=== PATIENT | male | born 1940 | race Caucasian/White ===

== ENCOUNTER 2019-03-05 08:55 | Inpatient (IN) ==
[2019-03-05] MEDS ORDERED: Isovue-370 500 ML BOTTLE IVP ONE (09:15)
[2019-03-05] MEDS ORDERED: 0.9 % Sodium Chloride 500 ML IVC ONE ×3 (09:15→13:16)
[2019-03-05 09:23] LABS: Hematocrit 41.6 % (37.5-50.1); Hemoglobin 13.8 g/dL (12.9-16.9); Mean Corpuscular HGB Conc 33.2 g/dL (31.6-35.5); Mean Corpuscular Hemoglobin 31.9 pg (28.0-33.3); Mean Corpuscular Volume 96.3 fL (83.0-100.0); Mean Platelet Volume 11.8 fL (9.4-12.4); Platelet Count 226 K/mcL (140-400); Red Blood Count 4.32 M/mcL (4.19-5.50); Red Cell Distribution Width 13.2 % (11.5-14.5)
[2019-03-05 09:25] LABS: VBG HCO3 24 mEq/L (21-27); VBG PCO2 47 mmHg (41-51); VBG PH 7.32 pH Units (7.32-7.42); VBG PO2 57 mmHg (25-50)
--- NOTE | 2019-03-05 09:33 | Emergency Department Note ---
Disposition Clinical Impression: Hypoxia, Acute respiratory distress, Lower extremity pain, left Pneumonia Qualifiers: Pneumonia type: due to unspecified organism Laterality: bilateral Lung location: lower lobe of lung Qualified Code(s): J18.1 - Lobar pneumonia, unspecified organism Acute renal failure (ARF) Qualifiers: Acute renal failure type: unspecified Qualified Code(s): N17.9 - Acute kidney failure, unspecified Disposition: Admitted As Inpatient Condition: Fair Referrals: Lincoln Hinojosa Jr, MD [Primary Care Provider] - Forms: ED Satisfaction Letter Time of Disposition: 12:49 General Adult HPI - General Chief complaint: ED Nausea/Vomiting/Diarrhea Stated complaint: Vomiting Time Seen by Provider: 03/05/19 09:12 Source: patient Nursing Notes Reviewed: Yes Vital Signs Reviewed: Yes - History of Present Illness HPI Narrative: I did see the patient initially at 9:00 and history was from both the patient and his could not tell me that he has had vomiting for the last several weeks, intermittent, some loose stools but no overt diarrhea, no complaint of fever. He does have a dry cough. The patient is on home oxygen 2-1/2 L but neither he nor his know why he is on the oxygen. I did review the previous record. The patient denies any chest pain or tightness or discomfort or pressure. He does use metoprolol but has not yet taken this medicine today. He denies any rhinorrhea. He does have shortness of breath. He does have left leg pain which is minimal and cannot tell me the specific character. This is also been going on for the last several weeks and has not yet had that evaluated. Per his previous record he had been on warfarin in the past and now is on Plavix. Social history: Stopped smoking 15 years ago Pain Scale: 0 - Related Data Home Medications Medication Instructions Recorded Confirmed Amlodipine Besylate 10 mg PO DAILY 03/20/16 03/20/16 Ascorbic Acid [Vitamin C] 1,000 mg PO DAILY PRN 03/20/16 03/20/16 Benazepril HCl [Lotensin] 40 mg PO DAILY 03/20/16 03/05/19 Clopidogrel [Plavix] 75 mg PO DAILY 03/20/16 03/05/19 Dm/Acetaminophen/Doxylamine [Vicks 10 ml PO HS PRN 03/20/16 03/20/16 Nyquil Cold-Flu Liquid] Hydralazine HCl 100 mg PO BID 03/20/16 03/20/16 Insulin Aspart Prot/Insuln Asp 20 - 40 unit SQ DAILY PRN 03/20/16 03/20/16 [Novolog Mix 70-30 Vial] Metoprolol Tartrate [Lopressor] 50 mg PO BID 03/20/16 03/05/19 Pravastatin Sodium 40 mg PO DAILY 03/20/16 03/05/19 glipiZIDE [Glipizide] 10 mg PO BID 03/20/16 03/05/19 hydroCHLOROthiazide 25 mg PO DAILY 03/20/16 03/05/19 [Hydrochlorothiazide] metFORMIN [Glucophage] 1,000 mg PO BIDWM 03/20/16 03/05/19 LORazepam [Ativan] 0.5 mg PO Q4HR PRN 03/05/19 03/05/19 Tamsulosin HCl [Flomax] 0.4 mg PO DAILY 03/05/19 03/05/19 Previous Rx's Medication Instructions Recorded Fluticasone/Salmeterol [Advair 1 each IH BID #1 blst.w.dev 03/30/16 250-50 Diskus] Tiotropium [Spiriva] 18 mcg IH DAILY #1 inh 03/30/16 levoFLOXacin [Levaquin] 500 mg PO DAILY #5 tablet 03/30/16 predniSONE [PredniSONE] 10 mg PO DAILY #30 tablet 03/30/16 Azithromycin [Zithromax] 0 tab PO DAILY #6 tablet 09/08/17 Promethazine/Codeine 5 ml PO QPM #60 ml 09/08/17 [Phenergan/Codeine] Allergies Allergy/AdvReac Type Severity Reaction Status Date / Time No Known Allergies Allergy Verified 09/08/17 12:09 Review of Systems: Constitutional: No fever Vision: No blurred vision ENT: No rhinorrhea Respiratory: + cough Allergic: No allergies : No blood in urine GI: No blood in stool Hematologic: No bruising Dermatologic: No skin rash Musculoskeletal: + pain in the extremities Neuro: No numbness of the extremities Past Medical History - Past Medical History Medical history: Reports: non-contributory Psychiatric history: Reports: no psych history - Social History Smoking Status: Never smoker Smokeless Tobacco Status: No Alcohol use: Reports: none Drug use: Reports: none Physical Exam CONSTITUTIONAL: Alert and oriented X3, well-nourished, ill appearing HEAD: Normocephalic; atraumatic. EYES: PERRL, no scleral icterus. NOSE: The nose is normal in appearance without rhinorrhea RESP: Normal chest excursion with respiration; breath sounds distant bilat and symmetric, no wheezing CARD: Regular rhythm, without murmurs, rub or gallop ABD: Non-distended; non-tender, soft,without rigidity, rebound or guarding SKIN: Normal for age and race; warm and dry; no apparent lesions Extremities: Pulses 2+ and equal in all 4 extremities. Minimal pretibial peripheral edema left lower extremity but no erythema. Minimally more swollen than the right and - General General appearance: alert Course Vital Signs Temperature 98.0 F 03/05/19 09:00 Pulse Rate 34 03/05/19 09:00 Respiratory Rate 20 03/05/19 09:00 Blood Pressure 107/55 03/05/19 09:00 O2 Sat by Pulse Oximetry 87 03/05/19 09:00 Temperature 98.0 F 03/05/19 09:00 Pulse Rate 32 03/05/19 13:14 Respiratory Rate 18 03/05/19 13:14 Blood Pressure 108/48 03/05/19 13:14 O2 Sat by Pulse Oximetry 93 03/05/19 13:14 Oxygen Delivery Oxygen Delivery Non Rebreather Mask Medical Decision Making - [facility] Narrative Medical decision making narrative: Patient initially had an oxygen saturation in the low 70s and her heart rate between 32 and 36 bpm. On the monitor he is in a very clear sinus bradycardia rhythm however on his EKG it does appear to be junctional rhythm with a rate of 33. There are some nonspecific ST changes. Evidence of right bundle-branch block. The patient is not dizzy at this time but was dizzy on the way here. His systolic blood pressure is 107. This is likely from the metoprolol but with the vomiting and loose stools he could be hypokalemic and labs are pending. Hyperkalemia is another possibility so no calcium or other medication will be given at this time as I will wait and see the lab results as the patient is essentially asymptomatic regarding blood pressure and dizziness. Patient will be admitted to the hospital. He is not febrile. I did go back and check on the patient at 920 and his condition is unchanged. 0935 I did just recheck on the patient and his blood pressure has been rechecked and is 105 systolic. Current heart rate is 29 bpm and a sinus bradycardia. His CBC has returned but the electrolytes have not yet returned. 1009 I did speak with the lab who tells me that the blood is very mildly hemolyzed which will alter the direct bilirubin and AST level but this amount of hemolysis does not affect potassium level and the potassium is 5.6 to this point this seems that the bradycardia is most consistent and most likely being caused by the use of metoprolol. He has not yet taken any today so I did speak with Dr. Ulises Arciniega from cardiology who agrees with observation and no further interventions at this time as the patient is not symptomatic and his blood pressure is reasonably preserved and the patient will be admitted to medicine after results of the DVT study and CTA of the chest have been returned. I will turn in the consult now. 1021 X-ray does have the appearance of pneumonia which is not surprising as his oxygen saturation on arrival was 71% he does have a cough I did confirm with the that he has not recently been in the healthcare facility or admitted so he will be started on Rocephin and I did use a 2 g dose as well as Zithromax 500 mg IV. He will have a VQ scan and the Doppler left lower extremity is pending. I rechecked on the patient again. Blood pressure still maintained. 1102 I did speak with Dr. Kenyon regarding the patient's acute renal failure and we did discuss the intravenous fluids and the patient has received 2 adminis trations of 500 mL fluid boluses. He will consult. 1113 the ventilation perfusion scan is low prob. 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 1248 I did speak with the hospitalist who accepts the patient for admission. Asks for a third bolus of IV fluid 500 mL and I did write for that. Patient will be admitted to their service for further evaluation and management of bradycardia, acute renal failure, pneumonia 1317 - Medical Records Medical records reviewed: Yes I reviewed the patient's medical records. - Lab Data Lab results reviewed: Yes I reviewed the patient's lab results. Result diagrams: 03/05/19 09:10 03/05/19 09:10 Lab Results 03/05/19 03/05/19 03/05/19 Range/Units 09:10 09:10 09:10 WBC 12.0 H (4.3-11.1) K/mcL RBC 4.32 (4.19-5.50) M/mcL Hgb 13.8 (12.9-16.9) g/dL Hct 41.6 (37.5-50.1) % MCV 96.3 (83.0-100.0) fL MCH 31.9 (28.0-33.3) pg MCHC 33.2 (31.6-35.5) g/dL RDW 13.2 (11.5-14.5) % Plt Count 226 (140-400) K/mcL MPV 11.8 (9.4-12.4) fL D-Dimer 1526 H (0-500) ng/mLFEU VBG pH (7.32-7.42) pH Units VBG pCO2 (41-51) mmHg VBG pO2 (25-50) mmHg VBG HCO3 (21-27) mEq/L Sodium 130 L (136-145) mEq/L Potassium 5.6 H (3.5-5.1) mEq/L Chloride 94 L (98-107) mEq/L Carbon Dioxide 23 (23-29) mEq/L BUN 41 H (8-23) mg/dL Creatinine 4.02 H (0.70-1.30) mg/dL Est GFR ( Amer) 18 L (> 60) Est GFR (Non-Af Amer) 15 L (> 60) BUN/Creatinine Ratio 10 (6-26) Glucose 236 H (70-105) mg/dL Calculated Osmolality 288 (280-300) Calcium 9.5 (8.6-10.3) mg/dL Total Bilirubin 0.5 (0.3-1.0) mg/dL Direct Bilirubin TNP AST TNP ALT 13 (7-52) Units/L Alkaline Phosphatase 36 (34-104) Units/L Troponin I < 0.03 (< 0.04) ng/mL Serum Total Protein 6.9 (6.4-8.9) g/dL Albumin 4.4 (3.5-5.7) g/dL Globulin 2.5 (2.4-3.5) g/dL Albumin/Globulin Ratio 1.8 (1.1-2.2) Lipase 21 (11-82) Units/L TSH 2.780 (0.340-5.600) mcIU/mL Free T4 1.34 (0.70-2.00) ng/dl 03/05/19 Range/Units 09:22 WBC (4.3-11.1) K/mcL RBC (4.19-5.50) M/mcL Hgb (12.9-16.9) g/dL Hct (37.5-50.1) % MCV (83.0-100.0) fL MCH (28.0-33.3) pg MCHC (31.6-35.5) g/dL RDW (11.5-14.5) % Plt Count (140-400) K/mcL MPV (9.4-12.4) fL D-Dimer (0-500) ng/mLFEU VBG pH 7.32 (7.32-7.42) pH Units VBG pCO2 47 (41-51) mmHg VBG pO2 57 H (25-50) mmHg VBG HCO3 24 (21-27) mEq/L Sodium (136-145) mEq/L Potassium (3.5-5.1) mEq/L Chloride (98-107) mEq/L Carbon Dioxide (23-29) mEq/L BUN (8-23) mg/dL Creatinine (0.70-1.30) mg/dL Est GFR ( Amer) (> 60) Est GFR (Non-Af Amer) (> 60) BUN/Creatinine Ratio (6-26) Glucose (70-105) mg/dL Calculated Osmolality (280-300) Calcium (8.6-10.3) mg/dL Total Bilirubin (0.3-1.0) mg/dL Direct Bilirubin AST ALT (7-52) Units/L Alkaline Phosphatase (34-104) Units/L Troponin I (< 0.04) ng/mL Serum Total Protein (6.4-8.9) g/dL Albumin (3.5-5.7) g/dL Globulin (2.4-3.5) g/dL Albumin/Globulin Ratio (1.1-2.2) Lipase (11-82) Units/L TSH (0.340-5.600) mcIU/mL Free T4 (0.70-2.00) ng/dl - Radiology Data Radiology results reviewed: Yes I reviewed the patient's radiology results. Critical Care Time Critical Care Time: Yes Total Critical Care Time: 60 Attestation: 60 minutes of critical care time was spent with this patient with acute respiratory distress, hypoxemia, acute renal failure, leg pain and swelling with consideration for pulmonary embolism, administration of IV antibiotics, IV fluids and discussion with multiple consultants including cardiology and nephrology. and freq rechecks of the patient
[2019-03-05 10:16] LABS: Alanine Aminotransferase 13 Units/L (7-52); Albumin 4.4 g/dL (3.5-5.7); Albumin/Globulin Ratio 1.8 (1.1-2.2); Alkaline Phosphatase 36 Units/L (34-104); BUN/Creatinine Ratio 10 (6-26); Bilirubin,Total 0.5 mg/dL (0.3-1.0); Blood Urea Nitrogen 41 mg/dL (8-23); Calcium 9.5 mg/dL (8.6-10.3); Carbon Dioxide 23 mEq/L (23-29); Chloride 94 mEq/L (98-107); Globulin 2.5 g/dL (2.4-3.5); Glucose 236 mg/dL (70-105); Lipase 21 Units/L (11-82); Osmolality,Calculated 288 (280-300); Potassium 5.6 mEq/L (3.5-5.1); Sodium 130 mEq/L (136-145); Total Protein 6.9 g/dL (6.4-8.9); Troponin I < 0.03 ng/mL (< 0.04); eGFR For Non-African Americans 15 (> 60)
[2019-03-05] MEDS ORDERED: Azithromycin 500 MG in D5% in Water 250 ML IVPB ONE (11:00)
[2019-03-05] MEDS ORDERED: cefTRIAXone 2,000 MG in Water for inj. (sterile) 20 ML 20 ML IVP ONE (11:00)
--- NOTE | 2019-03-05 12:39 | Electrocardiograph Report ---
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
--- NOTE | 2019-03-05 15:19 | Event Note ---
Date of Encounter: 03/05/19 Time of Encounter: 15:15 - Cardiology Event Note Continue holding AVB medications as cause of bradycardia. Pacer pads can be turned on at rate of 60 if patient becomes symptomatic or progressively hypotensive. Additionally can use atropine prn and either dopamine drip at 10mcg+ or epinephrine drip if she becomes symptomatic.
[2019-03-05] MEDS ORDERED: Ondansetron ODT 4 MG TAB.RAPDIS SL PRN (15:20)
[2019-03-05] MEDS ORDERED: Naloxone 0.4 MG/ML INJ IVP PRN (15:20)
[2019-03-05] MEDS ORDERED: Acetaminophen 325 MG TABLET PO PRN (15:20)
[2019-03-05] MEDS ORDERED: methylPREDNISolone 125 MG/2 ML VIAL IVP ONE (15:29)
[2019-03-05] MEDS ORDERED: Dextrose Gel 15 GM/37.5 ML TUBE PO PRN ×2 (15:30)
[2019-03-05] MEDS ORDERED: D5% in Water 1,000 ML IVC PRN (15:30)
[2019-03-05] MEDS ORDERED: *HR* Dextrose 50 % in Water (Syg) 50 ML SYRINGE IVP PRN (15:30)
--- NOTE | 2019-03-05 16:17 | Internal Med History&Physical ---
<Han Walls R - Last Filed: 03/05/19 17:22> Date of Encounter: 03/05/19 Time of Encounter: 14:24 Internal Medicine - H&P: HPI Chief complaint: N/V Admitted From: Emergency Dept History of present illness: Mr. Church is a 79 year old male with PMH of CAD s/p 5 stents, CVA's, HTN, HLD, DM2, COPD (on home O2 PRN), and BPH, presented with complaints of N/V and dizziness. He reports that 1-2 weeks ago he began having intermittent dizziness. After this dizziness he then he developed nausea, vomiting, and decreased appetite. His symptoms seemed to improve, but then returned. He reports continued episodes of intermittent dizziness. Also reports symptoms of dry cough, worsening dyspnea, extertional dyspnea, and orthopnea. He denies fevers, chills, chest pain, abdominal pain, diarrhea, melena, hematochezia, dysuria, or edema. He arrived at the ED hypoxic in the 70's with HR 32-36, and hypotensive. He was placed of supplemental O2 and given a total of 1500ml of NS. CXR is concerning for possible PNA, so he was started given rocephin and azithromycin. CXR was however a poor film. EKG showed junctional rhythm with non-specific ST changes and RBBB. Cardiology was consulted from the ED and recommended holding BB. He was found to have an MARIANO with SCr 4.02, and nephrology was consulted from the ED, who recommended continued fluid resuscitation. Upon my assessment the patient was non-labored on O2 supplementation and BP stable in 100's/50's. Past Med Surg Social Fam HX - Past Medical History Medical history: non-contributory Psychiatric history: no psych history - Past Surgical History Additional surgical history: cardiac stents - Social History Smoking Status: Never smoker Smokeless Tobacco Status: No Alcohol use: none Drug use: none - Family History Mother Living Status: Hx Family Cardiac Disorders: Yes Hx Family Endocrine Disorder: Yes Father Living Status: Hx Family Cardiac Disorders: Yes Internal Medicine - H&P: Meds Benazepril HCl [Lotensin] 40 mg PO DAILY 03/20/16 [History] Clopidogrel [Plavix] 75 mg PO DAILY 03/20/16 [History] Dm/Acetaminophen/Doxylamine [Vicks Nyquil Cold-Flu Liquid] 10 ml PO HS PRN 03/20/16 [History] Hydralazine HCl 100 mg PO BID 03/20/16 [History] Insulin Aspart Prot/Insuln Asp [Novolog Mix 70-30 Vial] 0 unit SQ DAILY PRN 03/20/16 [History] Metoprolol Tartrate [Lopressor] 50 mg PO BID 03/20/16 [History] Pravastatin Sodium 40 mg PO DAILY 03/20/16 [History] glipiZIDE [Glipizide] 10 mg PO BID 03/20/16 [History] hydroCHLOROthiazide [Hydrochlorothiazide] 25 mg PO DAILY 03/20/16 [History] metFORMIN [Glucophage] 1,000 mg PO BIDWM 03/20/16 [History] Acetaminophen [Extra Strength Non-Aspirin] 500 mg PO Q6H PRN 03/05/19 [History] Amlodipine Besylate 10 mg PO DAILY 03/05/19 [History] Hyoscyamine SL [Levsin SL] 0.125 mg SL Q2H PRN 03/05/19 [History] Ipratropium/Albuterol Sulfate [Iprat-Albut 0.5-3(2.5) mg/3 ml] 3 ml IH Q4H PRN 03/05/19 [History] LORazepam [Ativan] 0.5 mg PO Q4HR PRN 03/05/19 [History] Meclizine HCl [Verticalm] 25 mg PO QID PRN 03/05/19 [History] Nitroglycerin [Nitrostat] 0.4 mg SL Q5MIN PRN MDD 3 DOSES 03/05/19 [History] Ondansetron ODT [Zofran ODT] 4 mg SL Q6HR 03/05/19 [History] Tamsulosin HCl [Flomax] 0.4 mg PO DAILY 03/05/19 [History] Allergy/AdvReac Type Severity Reaction Status Date / Time No Known Allergies Allergy Verified 03/05/19 14:38 All Systems PM: A 10-system review of systems was performed and is negative for pertinent findings except as documented above in the HPI. - Constitutional Vitals: Temp Pulse Resp BP Pulse Ox 98.0 F 35 18 108/50 95 03/05/19 09:00 03/05/19 13:28 03/05/19 14:35 03/05/19 14:35 03/05/19 13:28 Exam: GEN: No acute distress, A&O3 HEAD: Atraumatic, normocephalic EENT: Pupils symmetric, sclera white, conjunctiva pink, dry mucous membranes HEART: Bradycardia, regular with PVCs, distant heart sound, S1 and S2, no murmurs LUNGS: Severely diminished bilaterally, poor aeration, no wheezes, rhonchi, or crackles ABD: Soft, nontender, nondistended, bowel sounds present EXT: Trace pretibial edema noted, symmetric, pulses 2/4 NEURO: No focal deficits, cooperative with exam Internal Med - H&P Results - Labs CBC & Chem 7: 03/05/19 09:10 03/05/19 09:10 Labs: Short CBC 03/05/19 Range/Units 09:10 WBC 12.0 H (4.3-11.1) K/mcL Hgb 13.8 (12.9-16.9) g/dL Hct 41.6 (37.5-50.1) % Plt Count 226 (140-400) K/mcL BMP 03/05/19 09:10 Sodium 130 L Potassium 5.6 H Chloride 94 L Carbon Dioxide 23 BUN 41 H Creatinine 4.02 H Glucose 236 H Calcium 9.5 Cardiac Enzymes 03/05/19 Range/Units 09:10 Troponin I < 0.03 (< 0.04) ng/mL Liver Function 03/05/19 Range/Units 09:10 Total Bilirubin 0.5 (0.3-1.0) mg/dL Direct Bilirubin TNP AST TNP ALT 13 (7-52) Units/L Alkaline Phosphatase 36 (34-104) Units/L Albumin 4.4 (3.5-5.7) g/dL - ABG Interpretation ABG results: 03/05/19 09:22 VBG pH 7.32 VBG pCO2 47 VBG pO2 57 H VBG HCO3 24 - Impressions ITS Impressions Chest X-Ray 03/05/19 09:13 IMPRESSION: Airspace opacities in the lungs with a mid to lower lung predominance. Findings may reflect pneumonia in the appropriate clinical setting. There also an indeterminate 8 mm nodular opacity in the right midlung. Recommend attention on follow-up exams. If this persists follow-up CT may be warranted. Small right pleural effusion. D/ / Marley Urbano MD / Marley Urbano MD Interpreting Provider: Marley Urbano MD Pulmonary Perfusion Imaging 03/05/19 10:38 IMPRESSION: Low probability for pulmonary embolus. The above findings are compatible with airways disease. D/ / Michael Cabrera MD / Michael Cabrera MD Interpreting Provider: Michael Cabrera MD - Assessment and Plan (1) Sepsis Current Visit: Yes Status: Acute Assessment and plan: 2 SIRS criteria: RR and leukocytosis, with possible source of infection (PNA) CXR with bibasilar opacification representing pneumonia or atelectasis Initially hypotensive, but now BP stable in 100's/50's Was given a total of 1500ml NS in ED - limiting volume with hx of diastolic dysfunction Given rocephin and azithromycin in ED Concern for aspiration with N/V - will change antibiotics to Unasyn - continue azithromycin at this time Check LA and BCx Check Resp Inf Panel, Legionella and S. pneumo urine antigens Continue MIVF at 100ml/hr - monitor for fluid overload Qualifiers: Sepsis type: sepsis due to unspecified organism Qualified Code(s): A41.9 - Sepsis, unspecified organism (2) Acute and chronic respiratory failure with hypoxia Current Visit: Yes Status: Acute Assessment and plan: Presented with hypoxia in the 70's Uses home O2 as needed for unknown diagnosis, likely COPD with prior smoking history V/Q scan with low probability for PE Currently non-labored on O2 supplementation Treat for PNA and COPD exacerbation Continue O2 with goal 88-92% (3) Pneumonia Current Visit: Yes Status: Acute Assessment and plan: CXR with bilateral opacification Will change to Unasyn with concern for aspiration with N/V Continue Azithromycin at this time Check Resp Inf Panel, Legionella and S. pneumo urine antigens Qualifiers: Pneumonia type: due to unspecified organism Laterality: bilateral Lung location: lower lobe of lung Qualified Code(s): J18.1 - Lobar pneumonia, unspecified organism (4) COPD exacerbation Current Visit: Yes Status: Acute Assessment and plan: Likely 2/2 to PNA Will give one dose of solu-medrol Duonebs and prednisone 40mg (5) Bradycardia Current Visit: Yes Status: Acute Assessment and plan: HR consistently in 30's EKG with junctional rhythm, RBBB, and non-specific EKG changes Patient denies chest pain. Troponin negative Cardiology recommends holding BB Check echo Continuous telemetry (6) MARIANO (acute kidney injury) Current Visit: Yes Status: Acute Assessment and plan: Likely prerenal with recent N/V and poor PO intake Also hx of BPH - check renal ultrasound for hydronephrosis Hold LAURO, HCTZ, and metformin Check UA, Uprot/Cr, phos MIVF 100 ml/hr NS (7) Nausea & vomiting Current Visit: Yes Status: Acute Assessment and plan: Unclear etiology, possible gastroenteritis Will provide zofran PRN Diet as tolerated Qualifiers: Vomiting type: unspecified Vomiting Intractability: non-intractable Qualified Code(s): R11.2 - Nausea with vomiting, unspecified (8) Hyperkalemia Current Visit: Yes Status: Acute Assessment and plan: Likely related to MARIANO Will recheck now to monitor for increase Expect improvement with IV fluids (9) Hyponatremia Current Visit: Yes Status: Acute Assessment and plan: Likely 2/2 volume loss from vomiting and poor PO intake Will check Nona, UOsm, UUrea (10) Type 2 diabetes mellitus Current Visit: Yes Status: Acute Assessment and plan: Hold oral meds Low-dose SSI and accuchecks Check A1c Qualifiers: Diabetes mellitus 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 insulin 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: without 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 use Diabetes mellitus complication status: without complication Qualified Code(s): E11.9 - Type 2 diabetes mellitus without complications (11) HTN (hypertension) Current Visit: Yes Status: Acute Assessment and plan: Hold anti-hypertensive meds with relative hypotension and MARIANO Qualifiers: Hypertension type: unspecified Qualified Code(s): I10 - Essential (primary) hypertension (12) DVT prophylaxis Current Visit: Yes Status: Acute Assessment and plan: SQ heparin (13) Dizziness Current Visit: Yes Status: Acute Assessment and plan: Intermittent symptoms, leading to N/V Suspect BPPV vs viral labrinthitis He is also bradycardic that may be contributing PRN antiemetics - Time Spent With Patient Total time spent is greater than 50% in coordination of care (as documented) at patient's floor/unit and/or counseling patient: <Christiano Mccall - Last Filed: 03/05/19 18:32> Date of Encounter: 03/05/19 Internal Med - H&P Results - Labs CBC & Chem 7: 03/05/19 09:10 03/05/19 09:10 - Assessment and Plan (1) Pneumonia Current Visit: Yes Status: Acute Qualifiers: Pneumonia type: due to unspecified organism Laterality: bilateral Lung location: lower lobe of lung Qualified Code(s): J18.1 - Lobar pneumonia, un specified organism (2) Acute and chronic respiratory failure with hypoxia Current Visit: Yes Status: Acute (3) COPD exacerbation Current Visit: Yes Status: Acute (4) Bradycardia Current Visit: Yes Status: Acute (5) HTN (hypertension) Current Visit: Yes Status: Acute Qualifiers: Hypertension type: unspecified Qualified Code(s): I10 - Essential (primary) hypertension (6) MARIANO (acute kidney injury) Current Visit: Yes Status: Acute (7) Type 2 diabetes mellitus Current Visit: Yes Status: Acute Qualifiers: Diabetes mellitus custodial insulin use: without custodial use Diabetes luana litus complication status: without complication Qualified Code(s): E11.9 - Type 2 diabetes mellitus without complications (8) Nausea & vomiting Current Visit: Yes Status: Acute Qualifiers: Vomiting type: unspecified Vomiting Intractability: non-intractable Qualified Code(s): R11.2 - Nausea with vomiting, unspecified (9) Sepsis Current Visit: Yes Status: Acute Qualifiers: Sepsis type: sepsis due to unspecified organism Qualified Code(s): A41.9 - Sepsis, unspecified organism (10) Hyperkalemia Current Visit: Yes Status: Acute (11) Hyponatremia Current Visit: Yes Status: Acute (12) DVT prophylaxis Current Visit: Yes Status: Acute (13) Dizziness Current Visit: Yes Status: Acute - Attending Attestation Patient seen and examined independently. Objective data has been reviewed including labs, micro, imaging, ECGs, and past records. I agree with the plan of care as documented above by the resident, with the following comments: Pt is 79 M w extensive medical hx as above with addition of R parietal CVA w known LUE/LLE weakness who p/w myriad of symptoms including vertigo and N/V, found to be in acute hypoxic resp failure w sats in 70%s requiring 15L to maintain at 90% and CXR showing bibasilar infiltrates suggestive of pneumonia and sepsis, bradycardic in 30s, and oliguric in MARIANO Cr 4 c/b hyperkalemia K 5.6. Suspect vertiginous process led to N/V which in turn caused both dehydration/MARIANO as well as aspiration pneumonia. Mainstay of treatment will be fluid resuscitation, abx therapy, and nausea control. Will investigate into cause of vertigo, follow cultures, and monitor renal fxn and lytes. Neph and Cardio following. Very wheezy/tight on exam and will add scheduled nebs and steroids for likely COPD exacerbation, too.
[2019-03-05] MEDS: Ipratropium/Albuterol Neb 3 ML IH SCH ×2 (16:18→22:04)
[2019-03-05] MEDS ORDERED: *HR* LORazepam 0.5 MG TABLET PO PRN (16:47)
[2019-03-05] MEDS ORDERED: Hyoscyamine SL 0.125 MG TAB.SUBL SL PRN (16:47)
[2019-03-05 16:50] LABS: Estimated Average Glucose 223 mg/dl; Hemoglobin A1C 9.4 %
[2019-03-05] MEDS: Ampicillin/Sulbactam 1,500 MG in 0.9 % Sodium Chloride Mini Bag 100 ML IVPB SCH (18:21)
[2019-03-05] MEDS: 0.9 % Sodium Chloride 1,000 ML IVC SCH (18:22)
[2019-03-05] MEDS: Ondansetron ODT 4 MG TAB.RAPDIS SL SCH ×2 (18:23→22:53)
[2019-03-05] MEDS: predniSONE 20 MG TABLET PO SCH (18:25)
[2019-03-05] MEDS: Insulin LISPRO 300 UNITS/3 ML VIAL SQ SCH (18:25)
[2019-03-05] MEDS ORDERED: Perflutren Lipid Microsphere 1.3 ML in 0.9 % Sodium Chloride 8.7 ML IVP ONE (18:49)
[2019-03-05 19:18] LABS: Calcium 8.6 mg/dL (8.6-10.3); Magnesium 1.8 mg/dL (1.6-2.6); Phosphorous 5.4 mg/dL (2.7-4.5); Potassium 5.1 mEq/L (3.5-5.1)
[2019-03-05 19:29] LABS: Bilirubin,Urine Moderate (Negative); Blood,Urine Negative (Negative); Clarity,Urine Clear (Clear); Color,Urine Dark Yellow (Yellow); Glucose,Urine (UA) Normal (Normal); Ketones,Urine Trace mg/dL (Negative); Leukocyte Esterase,Urine Negative (Negative); Nitrite,Urine Negative (Negative); Protein,Urine Trace mg/dL (Neg-Trace); Specific Gravity,Urine > 1.030 (1.010-1.025); Urobilinogen,Urine Normal (Normal)
[2019-03-05 19:36] LABS: Protein/Creatinine Ratio,Urine 0.16 mg/mg (0.00-0.20)
[2019-03-05] MEDS ORDERED: Insulin LISPRO 300 UNITS/3 ML VIAL SQ SCH (21:00)
[2019-03-05] MEDS: *HR* Heparin 5,000 UNIT/ML VIAL SQ SCH (22:52)
[2019-03-06] MEDS: Ipratropium/Albuterol Neb 3 ML IH SCH ×4 (03:35→22:10)
[2019-03-06] MEDS: 0.9 % Sodium Chloride 1,000 ML IVC SCH ×2 (04:11→14:46)
[2019-03-06 05:06] LABS: Basophils % 0.3 %; Hematocrit 36.4 % (37.5-50.1); Immature Granulocytes % 0.6 % (0-4); Lymphocytes # 0.5 K/mcL (0.6-4.6); Lymphocytes % 7.1 %; Mean Corpuscular HGB Conc 33.2 g/dL (31.6-35.5); Mean Corpuscular Hemoglobin 31.8 pg (28.0-33.3); Mean Corpuscular Volume 95.8 fL (83.0-100.0); Mean Platelet Volume 12.1 fL (9.4-12.4); Monocytes # 0.1 K/mcL (0.0-1.3); Monocytes % 1.2 %; Neutrophils # 6.3 K/mcL (1.6-8.9); Platelet Count 169 K/mcL (140-400); Segmented Neutrophils % 90.8 %
[2019-03-06 05:10] LABS: Hemoglobin 12.1 g/dL (12.9-16.9)
[2019-03-06 05:24] LABS: Calcium 8.4 mg/dL (8.6-10.3)
[2019-03-06] MEDS: Ampicillin/Sulbactam 1,500 MG in 0.9 % Sodium Chloride Mini Bag 100 ML IVPB SCH ×2 (05:35→17:52)
[2019-03-06] MEDS: Ondansetron ODT 4 MG TAB.RAPDIS SL SCH ×4 (05:37→23:08)
[2019-03-06] MEDS: *HR* Heparin 5,000 UNIT/ML VIAL SQ SCH ×3 (05:38→20:49)
--- NOTE | 2019-03-06 06:41 | Cardiology Consult Note ---
Date of Encounter: 03/07/19 Time of Encounter: 07:15 Assessment and Plan (1) Bradycardia Current Visit: Yes Status: Resolved BB washout for 48 hours, continue to monitor telemetry. No indication for PPM or temp pacer at this time. TTE (2) CAD (coronary artery disease) Current Visit: No Status: Acute Qualifiers: Coronary Disease-Associated Artery/Lesion type: [place] artery [place] vs. transplanted heart: [place] heart Associated angina: without angina Qualified Code(s): I25.10 - Atherosclerotic heart disease of [place] coronary artery without angina pectoris (3) MARIANO (acute kidney injury) Current Visit: Yes Status: Acute Discussion w patient/family: The assessment and plan as outlined above was discussed with the patient and/or family members who expressed understanding and agreement. All questions were answered. Thank you for involving us in the care of your patient. Please call with any questions. History of Present Illness Consult date: 03/06/19 Consult reason: bradycardia Chief complaint: nausea / dizziness History of present illness: Mr. Church is a 79 year old male CAD s/p 5 stents, CVA's, HTN, HLD, DM2, COPD on home O2 PRN, and BPH, presented with complaints of N/V and dizziness. He reports that 1-2 weeks ago he began having intermittent dizziness. After this dizziness he the n developed nausea, vomiting, and decreased appetite. His symptoms seemed to improve, but then returned. He reports continued episodes of intermittent dizziness. Also reports symptoms of dry cough, worsening dyspnea, exertional dyspnea, and orthopnea. He denies fevers, chills, chest pain. He arrived at the ED hypoxic in the 70's with HR 30s, and hypotensive. He was placed of supplemental O2 and given a total of 1500ml of NS. CXR is concerning for possible PNA, so he was started given rocephin and azithromycin. CXR was however a poor film. EKG showed junctional rhythm with non-specific ST changes and RBBB. I was consulted from the ED and recommended holding BB concurring with ED assessment and pacer pads placed for backup. He was found to have an MARIANO with SCr 4.02, and nephrology was consulted from the ED, who recommended continued fluid resuscitation. He was stabilized in the ED. Past Med Surg Social Fam HX - Past Medical History Medical history: non-contributory Psychiatric history: no psych history - Past Surgical History Additional surgical history: cardiac stents - Social History Smoking Status: Never smoker Smokeless Tobacco Status: No Alcohol use: none Drug use: none - Family History Mother Living Status: Hx Family Cardiac Disorders: Yes Hx Family Endocrine Disorder: Yes Father Living Status: Hx Family Cardiac Disorders: Yes Medications and Allergies Benazepril HCl [Lotensin] 40 mg PO DAILY 03/20/16 [History] Clopidogrel [Plavix] 75 mg PO DAILY 03/20/16 [History] Dm/Acetaminophen/Doxylamine [Vicks Nyquil Cold-Flu Liquid] 10 ml PO HS PRN 03/20/16 [History] Hydralazine HCl 100 mg PO BID 03/20/16 [History] Insulin Aspart Prot/Insuln Asp [Novolog Mix 70-30 Vial] 0 unit SQ DAILY PRN 03/20/16 [History] Metoprolol Tartrate [Lopressor] 50 mg PO BID 03/20/16 [History] Pravastatin Sodium 40 mg PO DAILY 03/20/16 [History] glipiZIDE [Glipizide] 10 mg PO BID 03/20/16 [History] hydroCHLOROthiazide [Hydrochlorothiazide] 25 mg PO DAILY 03/20/16 [History] metFORMIN [Glucophage] 1,000 mg PO BIDWM 03/20/16 [History] Acetaminophen [Extra Strength Non-Aspirin] 500 mg PO Q6H PRN 03/05/19 [History] Amlodipine Besylate 10 mg PO DAILY 03/05/19 [History] Hyoscyamine SL [Levsin SL] 0.125 mg SL Q2H PRN 03/05/19 [History] Ipratropium/Albuterol Sulfate [Iprat-Albut 0.5-3(2.5) mg/3 ml] 3 ml IH Q4H PRN 03/05/19 [History] LORazepam [Ativan] 0.5 mg PO Q4HR PRN 03/05/19 [History] Meclizine HCl [Verticalm] 25 mg PO QID PRN 03/05/19 [History] Nitroglycerin [Nitrostat] 0.4 mg SL Q5MIN PRN MDD 3 DOSES 03/05/19 [History] Ondansetron ODT [Zofran ODT] 4 mg SL Q6HR 03/05/19 [History] Tamsulosin HCl [Flomax] 0.4 mg PO DAILY 03/05/19 [History] Allergy/AdvReac Type Severity Reaction Status Date / Time No Known Allergies Allergy Verified 03/05/19 14:38 All Systems Review: The remainder of the systems were reviewed and are negative - Constitutional Constitutional: no chills, no fever(s) - EENT Eyes: no loss of vision, no pain Nose, mouth and throat: no bleeding gums, no epistaxis - Cardiovascular Cardiovascular: no leg edema, no lightheadedness - Respiratory Respiratory: no hemoptysis, no wheezing - Gastrointestinal Gastrointestinal: no hematemesis, no hematochezia - Genitourinary Genitourinary: no dysuria, no hematuria - Musculoskeletal Musculoskeletal: no arthralgias, no myalgias - Integumentary Integumentary: no erythema, no unusual bruising - Neurological Neurological: dizziness, no syncope - Psychiatric Psychiatric: no anxiety, no depression - Hematological/Lymphatic Hematologic/Lymphatic: no easy bleeding, no easy bruising Physical Examination Vital Signs, Last 4 Hours Temp Pulse Resp BP Pulse Ox 03/06/19 03:57 97.9 F 56 16 111/46 96 03/06/19 03:37 18 93 General: Conversant HEENT: Atraumatic Neck: No JVD Cardiac: Reg Rate and Rhythm Lungs: Normal Breath Sounds Neuro: Alert and responsive Abdomen: Soft Skin: No rashes noted on visualized skin Musculoskeletal: No Chest Wall Tenderness Extremities: No Edema Results 03/06/19 04:30 03/06/19 04:30 Lab Results 03/05/19 03/05/19 03/05/19 09:10 09:10 09:10 WBC 12.0 H Hgb 13.8 Hct 41.6 Plt Count 226 D-Dimer 1526 H Sodium 130 L Potassium 5.6 H Chloride 94 L Carbon Dioxide 23 BUN 41 H Creatinine 4.02 H Glucose 236 H Calcium 9.5 Magnesium Total Bilirubin 0.5 AST TNP ALT 13 Alkaline Phosphatase 36 Troponin I < 0.03 Lipase 21 TSH 2.780 03/05/19 03/06/19 03/06/19 18:49 04:30 04:30 WBC 6.9 Hgb 12.1 L D Hct 36.4 L Plt Count 169 D-Dimer Sodium 130 L 130 L Potassium 5.1 5.0 Chloride 97 L 97 L Carbon Dioxide 24 23 BUN 45 H 46 H Creatinine 4.26 H 3.00 H Glucose 200 H 313 H Calcium 8.6 8.4 L Magnesium 1.8 Total Bilirubin AST ALT Alkaline Phosphatase Troponin I Lipase TSH Consult Discharge Plan - Plan Referrals: Lincoln Hinojosa Jr, MD [Primary Care Provider] -
[2019-03-06] MEDS: predniSONE 20 MG TABLET PO SCH (07:26)
[2019-03-06] MEDS: Insulin LISPRO 300 UNITS/3 ML VIAL SQ SCH ×3 (07:27→16:36)
[2019-03-06 10:35] LABS: Adenovirus Not Detected (Not Detect); Bordetella Pertussis Not Detected (Not Detect); Chlamydophila pneumoniae Not Detected (Not Detect); Coronavirus 229E Not Detected (Not Detect); Coronavirus HKU1 Not Detected (Not Detect); Coronavirus NL63 Not Detected (Not Detect); Coronavirus OC43 Not Detected (Not Detect); Human Metapneumovirus Not Detected (Not Detect); Human Rhinovirus/Enterovirus Not Detected (Not Detect); Influenza A Subtype 2009 H1 Not Detected (Not Detect); Influenza A Untypeable Not Detected (Not Detect); Influenza B Not Detected (Not Detect); Mycoplasma pneumoniae Not Detected (Not Detect); Parainfluenza Virus 1 Not Detected (Not Detect); Parainfluenza Virus 2 Not Detected (Not Detect); Parainfluenza Virus 3 Not Detected (Not Detect); Parainfluenza Virus 4 Not Detected (Not Detect); Respiratory Syncytial Virus Not Detected (Not Detect)
[2019-03-06] MEDS: Azithromycin 500 MG in D5% in Water 250 ML IVPB SCH (11:57)
--- NOTE | 2019-03-06 12:04 | Nephrology Consult Note ---
Date of Encounter: 03/06/19 Time of Encounter: 09:20 Assessment and Plan (1) MARIANO (acute kidney injury) Current Visit: Yes Status: Acute Non-oliguric, prerenal acute kidney injury. His serum creatinine is already starting to improve with IV fluids. This is consistent with not just dehydration but volume depletion, which is dehydration plus end organ damage (such as acute kidney injury). His hyperkalemia is improving with volume expansion. I recommend holding the LAURO inhibitor, metformin, and hydrochlorothiazide. I found some old labs from 2017 that demonstrated a normal GFR greater than 60. The retroperitoneal ultrasound was not consistent with any hydronephrosis or renal stones or renal masses. The urinalysis demonstrated a concentrated specific gravity, consistent with volume depletion, and no proteinuria or hematuria. Therefore, there is low likelihood of a glomerulonephritis. I recommend continuing IV fluids, and he has no edema on exam. I also recommend following a renal protective strategy as able. Strict I's and O's, daily weights, avoidance of nephrotoxic agents, renal dosing. Thank you for consult in the [place] [facility] on this very pleasant patient. (2) Volume depletion Current Visit: Yes Status: Acute See above (3) Hyperkalemia Current Visit: Yes Status: Acute See above (4) HTN (hypertension) Current Visit: Yes Status: Chronic See above. Continue holding the LAURO inhibitor due to the acute kidney injury and hyperkalemia. If he needs an alternative antihypertensive agent in the meantime, I would recommend either a calcium channel prasanna or hydralazine for example. Qualifiers: Hypertension type: essential hypertension Qualified Code(s): I10 - Essential (primary) hypertension (5) Nausea & vomiting Current Visit: Yes Status: Acute See above Qualifiers: Vomiting type: unspecified Vomiting Intractability: non-intractable Qualified Code(s): R11.2 - Nausea with vomiting, unspecified (6) Diabetes Current Visit: No Status: Chronic Continue holding the metformin, but if his GFR improves above 30, then low-dose metformin is generally acceptable according to the FDA. Standard doses of metformin is an option when a GFR is greater than 45. Qualifiers: Diabetes mellitus type: type 2 Diabetes mellitus correction insulin use: without extermination inspector use Diabetes mellitus complication status: with kidney complications Diabetes mellitus complication detail: with other kidney complication Qualified Code(s): E11.29 - Type 2 diabetes mellitus with other diabetic kidney complication History of Present Illness - Reason for Consult Consult date: 03/05/19 Acute Kidney Injury, hyperkalemia Requesting physician: Sreedhar George - Chief Complaint Prerenal acute kidney injury - History of Present Illness The patient is a very pleasant 79-year-old male with a past medical history of long-standing diabetes on metformin, hypertension on an LAURO inhibitor and hydrochlorothiazide, and etc. Nephrology was consulted because he presented with hyperkalemia and acute kidney injury. The patient affirms having several days' onset of intractable nausea and vomiting. The patient's was at bedside and helped provide some history as well. He typically does not take NSAIDs, he affirmed. 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 He denied having previous gout or renal stones. He voiced that he was unable to keep foods and liquids down; nothing made it better or worsen. Not associated with any abdominal pain. No other sick contacts, and he did not affirm seeing blood in the vomit, urine or stools. Since being placed on IV fluids, his potassium and labs have trended better; and, the patient reported feeling much better today. He did not affirm palpitations, chest pain, shortness of breath, leg pain, new rash, or recent falls. Family history: He did not affirm having any first-degree relatives with a history of ESRD. Past Med Surg Social Fam HX - Past Medical History Medical history: non-contributory Psychiatric history: no psych history - Past Surgical History Additional surgical history: cardiac stents - Social History Smoking Status: Never smoker Smokeless Tobacco Status: No Alcohol use: none Drug use: none - Family History Mother Living Status: Hx Family Cardiac Disorders: Yes Hx Family Endocrine Disorder: Yes Father Living Status: Hx Family Cardiac Disorders: Yes Medications and Allergies Benazepril HCl [Lotensin] 40 mg PO DAILY 03/20/16 [History] Clopidogrel [Plavix] 75 mg PO DAILY 03/20/16 [History] Dm/Acetaminophen/Doxylamine [Vicks Nyquil Cold-Flu Liquid] 10 ml PO HS PRN 0 03/20/16 [History] Hydralazine HCl 100 mg PO BID 03/20/16 [History] Insulin Aspart Prot/Insuln Asp [Novolog Mix 70-30 Vial] 0 unit SQ DAILY PRN 03/20/16 [History] Metoprolol Tartrate [Lopressor] 50 mg PO BID 03/20/16 [History] Pravastatin Sodium 40 mg PO DAILY 03/20/16 [History] glipiZIDE [Glipizide] 10 mg PO BID 03/20/16 [History] hydroCHLOROthiazide [Hydrochlorothiazide] 25 mg PO DAILY 03/20/16 [History] metFORMIN [Glucophage] 1,000 mg PO BIDWM 03/20/16 [History] Acetaminophen [Extra Strength Non-Aspirin] 500 mg PO Q6H PRN 03/05/19 [History] Amlodipine Besylate 10 mg PO DAILY 03/05/19 [History] Hyoscyamine SL [Levsin SL] 0.125 mg SL Q2H PRN 03/05/19 [History] Ipratropium/Albuterol Sulfate [Iprat-Albut 0.5-3(2.5) mg/3 ml] 3 ml IH Q4H PRN 03/05/19 [History] LORazepam [Ativan] 0.5 mg PO Q4HR PRN 03/05/19 [History] Meclizine HCl [Verticalm] 25 mg PO QID PRN 03/05/19 [History] Nitroglycerin [Nitrostat] 0.4 mg SL Q5MIN PRN MDD 3 DOSES 03/05/19 [History] Ondansetron ODT [Zofran ODT] 4 mg SL Q6HR 03/05/19 [History] Tamsulosin HCl [Flomax] 0.4 mg PO DAILY 03/05/19 [History] Allergy/AdvReac Type Severity Reaction Status Date / Time No Known Allergies Allergy Verified 03/05/19 14:38 Review of Systems All Systems: reviewed and no additional remarkable complaints except as stated Exam - Vital Signs Vital signs: Initial Vital Signs Temp Pulse Resp BP Pulse Ox 98.0 F 34 20 107/55 87 03/05/19 09:00 03/05/19 09:00 03/05/19 09:00 03/05/19 09:00 03/05/19 09:00 Vital Signs - Last 8 Hours Temp Pulse Resp BP Pulse Ox 03/06/19 11:08 97.9 F 75 18 138/65 88 03/06/19 10:29 16 93 03/06/19 07:19 98.1 F 61 16 150/63 92 Intake and Output 03/05/19 03/06/19 03/06/19 23:59 07:59 15:59 Intake Total 100 / 1120 1700 / 2060 360 / 2060 Output Total 700 / 1050 350 / 1050 Balance 100 / 1120 1000 / 1010 10 / 1010 Intake: IV Fluids 100 / 1120 950 / 950 0.9 % Sodium Chloride 1,000 ML 950 / 950 @ 100 mls/hr IVC .Q10H YUN Rx#: [id number] Unasyn 1,500 mg In 0.9 % Sodium 100 / 100 Chloride (Mini-Bag +) 100 ML @ 200 mls/hr IVPB Q12H YUN Rx#: [id number] Oral 750 / 1110 360 / 1110 Output: Urine 700 / 1050 350 / 1050 Other: Meal Breakfast Percent of Meal Consumed 100% Weight 99.5 kg 100.4 kg Blood Glucose* 182 271 330 Patient Weight 03/06/19 23:59 Weight 100.4 kg - General Appearance General appearance: well-developed, well-nourished, appears started age, obese, fatigue EENT: ATNC, PERRL, mucous membranes moist Neck: no JVD, supple Respiratory: clear Cardiology: no edema, regular rate, regular rhythm, normal S1, normal S2 Gastrointestinal: normoactive bowel sounds, no guarding, obese Integumentary: warm and dry, ecchymotic Neurologic: no focal deficit, no asterixis, alert and oriented x3 Musculoskeletal: no deformities, no erythema, no cyanosis Psychiatric: mood/affect appropriate, cooperative Results - Lab Results 03/06/19 04:30 03/06/19 04:30 Most recent lab results 03/06/19 04:30 Calcium 8.4 L Consult Discharge Plan - Plan Referrals: Lincoln Hinojosa Jr, MD [Primary Care Provider] -
--- NOTE | 2019-03-06 13:29 | Internal Med Progress Note ---
<Han Walls R - Last Filed: 03/06/19 13:25> Hospitalist Progress Note - Encounter Date of Encounter: 03/06/19 Time of Encounter: 13:26 - Subjective Interval History: Mr. Church is a 79 y/o M with PMH of CAD s/p 5 stents, R parietal CVA, HTN, HLD, DM2, COPD (on home O2 PRN), and BPH, presented with complaints of dizziness, N/V, and dyspnea, who was found to have PNA and vertigo. Patient seen and examined at bedside. No acute overnight events. He states that he is feeling much better today. Reports that his breathing is improving and he is requiring less O2. Denies further episodes of dizziness and N/V. Denies other acute complaints. - Exam Vitals: Temp Pulse Resp BP Pulse Ox 97.9 F 75 18 138/65 88 03/06/19 11:08 03/06/19 11:08 03/06/19 11:08 03/06/19 11:08 03/06/19 11:08 Exam: GEN: No acute distress, A&O3 HEAD: Atraumatic, normocephalic EENT: Pupils symmetric, sclera white, conjunctiva pink, dry mucous membranes HEART: RRR, distant heart sound, S1 and S2, no murmurs LUNGS: Diminished bilaterally, improving aeration, rhonchi in R base, wheezes throughout ABD: Soft, nontender, nondistended, bowel sounds present EXT: Trace pretibial edema noted, symmetric, pulses 2/4 NEURO: Residual LUE and LLE weakness, cooperative with exam - Assessment and Plan (1) Sepsis Current Visit: Yes Status: Acute Assessment and Plan: 2/2 to PNA - concern for aspiration with N/V Continue Unasyn and Azithromycin Resp Inf Panel engative Legionella and S. pneumo urine antigens pending BCx 03/05/19 with NGTD Continue MIVF at 100ml/hr - monitor for fluid overload (2) Acute and chronic respiratory failure with hypoxia Current Visit: Yes Status: Acute Assessment and Plan: Presented with hypoxia in the 70's Uses home O2 as needed for unknown diagnosis, likely COPD with prior smoking history V/Q scan with low probability for PE Currently non-labored and requiring a decreasing amount of O2 supplementation Treat for PNA and COPD exacerbation (3) Pneumonia Current Visit: Yes Status: Acute Assessment and Plan: CXR with bilateral opacification Will change to Unasyn with concern for aspiration with N/V Continue Azithromycin at this time Resp Inf Panel negative Legionella and S. pneumo urine antigens pending (4) COPD exacerbation Current Visit: Yes Status: Acute Assessment and Plan: Likely 2/2 to PNA Duonebs and prednisone 40mg - steroids to be completed 03/09/19 if improving (5) Bradycardia Current Visit: Yes Status: Acute Assessment and Plan: HR improving this morning EKG with junctional rhythm, RBBB, and non-specific EKG changes Patient denies chest pain. Troponin negative Cardiology recommends BB wash-out Echo with EF 65%, normal LV and RV structure and motion, mild AR/MR/TR, moderate pulm HTN Continuous telemetry (6) MARIANO (acute kidney injury) Current Visit: Yes Status: Acute Assessment and Plan: Likely prerenal with recent N/V and poor PO intake Renal ultrasound without evidence of hydronephrosis Hold LAURO, HCTZ, and metformin Improving - continue MIVF 100 ml/hr NS Strict I/Os, renal diet, and avoid nephrotoxic agents as able (7) Nausea & vomiting Current Visit: Yes Status: Acute Assessment and Plan: Unclear etiology, possible vertigo Will provide zofran PRN Diet as tolerated (8) Hyperkalemia Current Visit: Yes Status: Acute Assessment and Plan: Likely related to MARIANO Improvement with IV fluids, continue to monitor (9) Hyponatremia Current Visit: Yes Status: Acute Assessment and Plan: Likely 2/2 volume loss from vomiting and poor PO intake Continue MIVF at this time (10) Type 2 diabetes mellitus Current Visit: Yes Status: Acute Assessment and Plan: Hold oral meds. A1c 9.4% Has been elevated, increase to medium-dose SSI (11) HTN (hypertension) Current Visit: Yes Status: Chronic Assessment and Plan: Reasonably well controlled at this time without his medications Will restart amlodipine if needed Hold LAURO and HCTZ d/t renal function (12) Dizziness Current Visit: Yes Status: Acute Assessment and Plan: Intermittent symptoms, leading to N/V Suspect BPPV vs viral labrinthitis He was also bradycardic that may be contributing PRN antiemetics DVT Prophylaxis: SQ heparin - Time Spent with Patient Total time spent is greater than 50% in coordination of care (as documented) at patient's floor/unit and/or counseling patient: Internal Medicine: Result - Labs CBC & Chem 7: 03/06/19 04:30 03/06/19 04:30 Labs: Short CBC 03/06/19 Range/Units 04:30 WBC 6.9 (4.3-11.1) K/mcL Hgb 12.1 L D (12.9-16.9) g/dL Hct 36.4 L (37.5-50.1) % Plt Count 169 (140-400) K/mcL Neutrophils # 6.3 (1.6-8.9) K/mcL BMP 03/05/19 03/06/19 18:49 04:30 Sodium 130 L 130 L Potassium 5.1 5.0 Chloride 97 L 97 L Carbon Dioxide 24 23 BUN 45 H 46 H Creatinine 4.26 H 3.00 H Glucose 200 H 313 H Calcium 8.6 8.4 L Urine 03/05/19 Range/Units 18:56 Urine Color Dark Yellow (Yellow) Urine Clarity Clear (Clear) Urine pH 5.0 (5.0-8.0) pH Units Ur Specific [place] > 1.030 H (1.010-1.025) Urine Protein Trace (Neg-Trace) mg/dL Urine Glucose (UA) Normal (Normal) mg/dL - ABG Interpretation ABG results: PT/INR, D-dimer 1526 ng/mLFEU (0-500) H 03/05/19 09:10 - Impressions Impressions Echocardiogram 03/05/19 15:28 Impressions: LVEF 65%. Normal LV chamber size, wall thickness and function. Normal right ventricular structure and function. Mild aortic regurgitation. Mild mitral regurgitation. Mild tricuspid regurgitation. Moderate pulmonary hypertension. Left Ventricular Wall Motion: Rest Echo Findings All wall segments showed normal motion. Findings: Study Quality * Technically adequate exam. ECG Findings * Sinus bradycardia. Left Ventricle * LVEF 65%. * Normal LV chamber size, wall thickness and systolic function. * Normal left ventricular diastolic function. Right Ventricle * Normal right ventricular structure and function. Left Atrium * Normal left atrial size. Right Atrium * Normal right atrial size. Interatrial Septum * Interatrial septum not well evaluated. * No evidence of PFO by color Doppler. Aortic Valve * Trileaflet aortic valve. * Mildly calcified aortic valve leaflets. * Mild aortic regurgitation. * No aortic stenosis. Mitral Valve * Normal mitral valve structure. * No mitral stenosis. * Mild mitral regurgitation. Tricuspid Valve * Normal tricuspid valve structure. * No tricuspid stenosis. * Mild tricuspid regurgitation. * Estimated RVSP is 53 mmHg. * Estimated RA pressure is 8 mmHg. * Moderate pulmonary hypertension. Pulmonic Valve * Pulmonic valve is not well visualized. * No pulmonic stenosis. * Mild pulmonic regurgitation. Aorta * The aortic root is mildly dilated. * The aortic root is 3.9 cm. Pericardium * The pericardium appears normal. IVC * The IVC is not dilated. * < 50% respiratory change. Retroperitoneum Ultrasound 03/05/19 15:31 IMPRESSION: Normal sonographic appearance of the kidneys. D/ / 03/05/2019 18:21:44 Boris Montejo MD / rikki Interpreting Provider: Boris Montejo MD Chest X-Ray 03/05/19 15:32 IMPRESSION: Bibasilar increased opacification could represent bilateral pleural effusions combined with atelectasis or pneumonia D/ / Sreedhar Camarena MD / Sreedhar Camarena MD Interpreting Provider: Sreedhar Camarena MD Consult Discharge Plan - Plan Referrals: Lincoln Hinojosa Jr, MD [Primary Care Provider] - <Christiano Mccall - Last Filed: 03/06/19 14:46> Hospitalist Progress Note - Encounter Date of Encounter: 03/06/19 - Assessment and Plan (1) Pneumonia Current Visit: Yes Status: Acute (2) Acute and chronic respiratory failure with hypoxia Current Visit: Yes Status: Acute (3) COPD exacerbation Current Visit: Yes Status: Acute (4) Bradycardia Current Visit: Yes Status: Acute (5) HTN (hypertension) Current Visit: Yes Status: Chronic (6) MARIANO (acute kidney injury) Current Visit: Yes Status: Acute (7) Type 2 diabetes mellitus Current Visit: Yes Status: Acute (8) Nausea & vomiting Current Visit: Yes Status: Acute (9) Sepsis Current Visit: Yes Status: Acute (10) Hyperkalemia Current Visit: Yes Status: Acute (11) Hyponatremia Current Visit: Yes Status: Acute (12) Dizziness Current Visit: Yes Status: Acute Internal Medicine: Result - Labs CBC & Chem 7: 03/06/19 04:30 03/06/19 04:30 - Attending Attestation Patient seen and examined independently, including review of objective data including labs. I agree with plan of care as documented above by the resident with the following comments: Pt today looks and feels much better, breathing easier, sitting in bedside chair talking to his . He is still on heated hi mairel O2 but satting 100%, and I was able to wean him down to minimal settings and thus had RN change patient to nasal cannula and he maintained mid 90s on 8L. Continue Unasyn for presumed a spiration pneumonia. Pulse overnight in 50s, keep holding BB. Cr this AM down to 3 and pt is making urine, FENa is 0.2% suggestive of pre-renal, and we will continue fluids. Can plan for d/c in next few days when oxygenation improves to baseline home 2-3L. <Han Walls - Last Filed: 03/06/19 13:25> (1) Sepsis Qualifiers: Sepsis type: sepsis due to unspecified organism Qualified Code(s): A41.9 - Sepsis, unspecified organism (3) Pneumonia Qualifiers: Pneumonia type: due to unspecified organism Laterality: bilateral Lung location: lower lobe of lung Qualified Code(s): J18.1 - Lobar pneumonia, unspecified organism (7) Nausea & vomiting Qualifiers: Vomiting type: unspecified Vomiting Intractability: non-intractable Qualified Code(s): R11.2 - Nausea with vomiting, unspecified (10) Type 2 diabetes mellitus Qualifiers: Diabetes mellitus prison insulin use: without prison use Diabetes mellitus complication status: without complication Qualified Code(s): E11.9 - Type 2 diabetes mellitus without complications (11) HTN (hypertension) Qualifiers: Hypertension type: essential hypertension Qualified Code(s): I10 - Essential (primary) hypertension <Christiano Mccall Handy - Last Filed: 03/06/19 14:46> (1) Pneumonia Qualifiers: Pneumonia type: due to unspecified organism Laterality: bilateral Lung location: lower lobe of lung Qualified Code(s): J18.1 - Lobar pneumonia, unspecified organism (5) HTN (hypertension) Qualifiers: Hypertension type: essential hypertension Qualified Code(s): I10 - Essential (primary) hypertension (7) Type 2 diabetes mellitus Qualifiers: 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
[2019-03-06] MEDS ORDERED: Insulin LISPRO 300 UNITS/3 ML VIAL SQ SCH (13:38)
[2019-03-07] MEDS: 0.9 % Sodium Chloride 1,000 ML IVC SCH (00:56)
[2019-03-07] MEDS: Ipratropium/Albuterol Neb 3 ML IH SCH ×4 (03:46→21:49)
[2019-03-07] MEDS: Ondansetron ODT 4 MG TAB.RAPDIS SL SCH ×4 (05:24→23:29)
[2019-03-07] MEDS: Ampicillin/Sulbactam 1,500 MG in 0.9 % Sodium Chloride Mini Bag 100 ML IVPB SCH (05:25)
[2019-03-07] MEDS: *HR* Heparin 5,000 UNIT/ML VIAL SQ SCH ×3 (05:25→23:25)
[2019-03-07] MEDS: predniSONE 20 MG TABLET PO SCH (07:44)
[2019-03-07] MEDS: Insulin LISPRO 300 UNITS/3 ML VIAL SQ SCH ×3 (07:52→16:42)
--- NOTE | 2019-03-07 10:21 | Cardiology Progress Note ---
Date of Encounter: 03/07/19 Time of Encounter: 10:19 Assessment and Plan (1) Bradycardia Current Visit: Yes Status: Acute Pt presented with bradycardia. HR in 30's. Patient and moderate dose of beta prasanna and noted to have hyperkalemia. Currently treated for PNA. BB held and HR has improved. AVg HR on 12 hour telemetry shows avg HR 80 bpm qith HR up to 114. No significant bradycardia seen. no pauses. TTE completed shows preserved EF. Pt on metoprolol 50 mg BID at home. Will add low dose for h/o CAD. Outpatient follow-up with cardiology recommended. [facility] will coordinate. Cardiology will sign off. (2) CAD (coronary artery disease) Current Visit: No Status: Acute History of CAD status post 5 prior cardiac stents. Continue aspirin and statin. We will add back low-dose beta prasanna. Qualifiers: Coronary Disease-Associated Artery/Lesion type: apache artery [place] vs. transplanted heart: apache heart Associated angina: without angina Qualified Code(s): I25.10 - Atherosclerotic heart disease of apache coronary artery without angina pectoris (3) HTN (hypertension) Current Visit: Yes Status: Chronic Qualifiers: Hypertension type: essential hypertension Qualified Code(s): I10 - Essential (primary) hypertension Discussion w patient/family: The assessment and plan as outlined above was discussed with the patient and/or family members who expressed understanding and agreement. All questions were answered. Thank you for involving us in the care of your patient. Please call with any questions. Subjective Principal diagnosis: Chest pain Interval history: Mr. Church is sitting in his chair. in room. He denies dizziness or lightheadedness. Denies chest pain. Objective Vital Signs, Last 4 Hours Temp Pulse Resp BP Pulse Ox 03/07/19 07:07 98.4 F 80 22 145/77 90 General: Conversant, No Apparent Distress HEENT: Atraumatic, Normocephaly, Mucus Membranes Moist Neck: No JVD, Normal carotid pulses Cardiac: Reg Rate and Rhythm, Normal S1 and S2, No Murmur Lungs: Normal Breath Sounds, No Wheeze, Rales, Rhonchi Neuro: Alert and responsive, No focal deficits noted Abdomen: Soft, Non-Tender Skin: No rashes noted on visualized skin Musculoskeletal: No Chest Wall Tenderness Extremities: No Clubbing, No Cyanosis, No Edema, Normal Pulses Results 03/06/19 04:30 03/06/19 04:30 - Imaging and Cardiology Echo: report reviewed - EKG Interpretation EKG results cardiology: personally reviewed Consult Discharge Plan - Plan Referrals: Lincoln Hinojosa Jr, MD [Primary Care Provider] -
--- NOTE | 2019-03-07 10:44 | Internal Med Progress Note ---
<Han Walls R - Last Filed: 03/07/19 12:57> Hospitalist Progress Note - Encounter Date of Encounter: 03/07/19 Time of Encounter: 10:42 - Subjective Interval History: Mr. Church is a 79 y/o M with PMH of CAD s/p 5 stents, R parietal CVA, HTN, HLD, DM2, COPD (on home O2 PRN), and BPH, presented with complaints of dizziness, N/V, and dyspnea, who was found to have PNA and vertigo. Patient seen and examined at bedside. No acute overnight events. Continues to feel better. Reports his breathing is improving. Still without further episodes of dizziness and N/V. Does report some loose/soft stools since starting the antibiotics. Denies other acute complaints. - Exam Vitals: Temp Pulse Resp BP Pulse Ox 98.4 F 80 18 145/77 89 03/07/19 07:07 03/07/19 07:07 03/07/19 10:08 03/07/19 10:08 03/07/19 10:08 Exam: GEN: No acute distress, A&O3 HEAD: Atraumatic, normocephalic EENT: Pupils symmetric, sclera white, conjunctiva pink, dry mucous membranes HEART: RRR, distant heart sound, S1 and S2, no murmurs LUNGS: Diminished bilaterally, improving aeration, less wheezing, rhonchi improved ABD: Soft, nontender, nondistended, bowel sounds present EXT: Trace pretibial edema noted, symmetric, pulses 2/4 NEURO: Residual LUE and LLE weakness, cooperative with exam - Assessment and Plan (1) Sepsis Current Visit: Yes Status: Acute Assessment and Plan: 2/2 to PNA - concern for aspiration with N/V With improvement with deescalate to Augmentin Resp Inf Panel, Legionella, and strep pneumo negative BCx 03/05/19 with NGTD (2) Acute and chronic respiratory failure with hypoxia Current Visit: Yes Status: Acute Assessment and Plan: Presented with hypoxia in the 70's Uses home 2L O2 as needed for COPD at home Currently non-labored and requiring a decreasing amount of O2 supplementation, down to 4L today Treat for PNA and COPD exacerbation (3) Pneumonia Current Visit: Yes Status: Acute Assessment and Plan: CXR with bilateral opacification Will deescalate to Augmentin (4) COPD exacerbation Current Visit: Yes Status: Acute Assessment and Plan: Likely 2/2 to PNA Duonebs and prednisone 40mg - steroids to be completed 03/09/19 if improving (5) MARIANO (acute kidney injury) Current Visit: Yes Status: Acute Assessment and Plan: Likely prerenal with recent N/V and poor PO intake Renal ultrasound without evidence of hydronephrosis Hold LAURO, HCTZ, and metformin Improving - continue MIVF 75 ml/hr LR Strict I/Os, renal diet, and avoid nephrotoxic agents as able (6) Bradycardia Current Visit: Yes Status: Resolved Assessment and Plan: HR has been stable EKG with junctional rhythm, RBBB, and non-specific EKG changes Patient denies chest pain. Troponin negative Echo with EF 65%, normal LV and RV structure and motion, mild AR/MR/TR, moderate pulm HTN Cardiology recommends restarting low-dose BB d/t hx of CAD and out-patient follow-up (7) Type 2 diabetes mellitus Current Visit: Yes Status: Acute Assessment and Plan: Hold oral meds. A1c 9.4% Has been elevated, requiring 37U yesterday - will add basal insulin at 10U + medium-dose SSI (8) HTN (hypertension) Current Visit: Yes Status: Chronic Assessment and Plan: Will restart amlodipine today Hold LAURO and HCTZ d/t renal function (9) Hyponatremia Current Visit: Yes Status: Resolved Assessment and Plan: Likely 2/2 volume loss from vomiting and poor PO intake Now improved DVT Prophylaxis: SQ heparin - Time Spent with Patient Total time spent is greater than 50% in coordination of care (as documented) at patient's floor/unit and/or counseling patient: Internal Medicine: Result - Labs CBC & Chem 7: 03/06/19 04:30 03/07/19 10:56 - ABG Interpretation ABG results: PT/INR, D-dimer 1526 ng/mLFEU (0-500) H 03/05/19 09:10 Consult Discharge Plan - Plan Referrals: Lincoln Hinojosa Jr, MD [Primary Care Provider] - <Christiano Mccall - Last Filed: 03/07/19 13:50> Hospitalist Progress Note - Encounter Date of Encounter: 03/07/19 - Assessment and Plan (1) Pneumonia Current Visit: Yes Status: Acute (2) Acute and chronic respiratory failure with hypoxia Current Visit: Yes Status: Acute (3) COPD exacerbation Current Visit: Yes Status: Acute (4) Bradycardia Current Visit: Yes Status: Resolved (5) HTN (hypertension) Current Visit: Yes Status: Chronic (6) MARIANO (acute kidney injury) Current Visit: Yes Status: Acute (7) Type 2 diabetes mellitus Current Visit: Yes Status: Acute (8) Sepsis Current Visit: Yes Status: Acute (9) Hyponatremia Current Visit: Yes Status: Resolved Internal Medicine: Result - Labs CBC & Chem 7: 03/06/19 04:30 03/07/19 10:56 Labs: BMP 03/07/19 10:56 Sodium 136 Potassium 4.3 Chloride 100 Carbon Dioxide 26 BUN 28 H Creatinine 1.24 Glucose 290 H Calcium 9.1 - Attending Attestation Patient seen and examined independently, including review of objective data including labs. I agree with plan of care as documented above by the resident with the following comments: Pt feels great today, sitting in bedside chair chatting w and son. HR returned to 70-80s. UOP increasing and today Cr is almost normal. No SOB although is still requiring a decent amount of O2; at rest was weaned to 4L, but with standing and taking a few steps on 4L he dropped into 60s%, recovered quickly w rest. Will continue to treat aspiration pneumonia and give time for acute on chronic hypoxic respiratory failure to improve. <Han Walls - Last Filed: 03/07/19 12:57> (1) Sepsis Qualifiers: Sepsis type: sepsis due to unspecified organism Qualified Code(s): A41.9 - Sepsis, unspecified organism (3) Pneumonia Qualifiers: Pneumonia type: due to unspecified organism Laterality: bilateral Lung location: lower lobe of lung Qualified Code(s): J18.1 - Lobar pneumonia, unspe cified organism (7) Type 2 diabetes mellitus Qualifiers: Diabetes mellitus fpc insulin use: without termination clerk use Diabetes mellitus complication status: without complication Qualified Code(s): E11.9 - Type 2 diabetes mellitus without complications (8) HTN (hypertension) Qualifiers: Hypertension type: essential hypertension Qualified Code(s): I10 - Essential (primary) hypertension <Christiano Mccall - Last Filed: 03/07/19 13:50> (1) Pneumonia Qualifiers: Pneumonia type: due to unspecified organism Laterality: bilateral Lung location: lower lobe of lung Qualified Code(s): J18.1 - Lobar pneumonia, unspecified organism (5) HTN (hypertension) Qualifiers: Hypertension type: essential hypertension Qualified Code(s): I10 - Essential (primary) hypertension (7) Type 2 diabetes mellitus Qualifiers: Diabetes mellitus fpc insulin use: without fpc use Diabetes mellitus complication status: without complication Qualified Code(s): E11.9 - Type 2 diabetes mellitus without complications (8) Sepsis Qualifiers: Sepsis type: sepsis due to unspecified organism Qualified Code(s): A41.9 - Sepsis, unspecified organism
[2019-03-07] MEDS: amLODIPine 5 MG TABLET PO SCH (11:01)
--- NOTE | 2019-03-07 11:02 | Nephrology Progress Note ---
Date of Encounter: 03/07/19 Time of Encounter: 10:05 - Assessment and Plan (1) MARIANO (acute kidney injury) Current Visit: Yes Status: Acute Still pending labs though ordered in advance for 0500. I suspect prerenal MARIANO, but having the medically necessary labs will help in performing evaluation/management and there would guide my renal recommendations for today (Friday). Addendum: his labs returned later in the day, and since his SCr is so easily improving with IVF along, then this MARIANO is consistent with dehydration/volume depletion/prerenal etiology. I will politely sign-off now that his MARIANO has resolved. I'd be happy to see the pt for outpt Nephro for follow up in approx 3-5 weeks as most pt's with an MARIANO should be assessed for any development of CKD as an outpt. Thank you. (2) Volume depletion Current Visit: Yes Status: Acute Resolved (3) Hyperkalemia Current Visit: Yes Status: Acute Resolved (4) HTN (hypertension) Current Visit: Yes Status: Chronic Qualifiers: Hypertension type: essential hypertension Qualified Code(s): I10 - Essential (primary) hypertension (5) Nausea & vomiting Current Visit: Yes Status: Acute Resolved Qualifiers: Vomiting type: unspecified Vomiting Intractability: non-intractable Qualified Code(s): R11.2 - Nausea with vomiting, unspecified (6) Diabetes Current Visit: No Status: Chronic As per primary Qualifiers: Diabetes mellitus type: type 2 Diabetes mellitus fpc insulin use: without fpc use Diabetes mellitus complication status: with kidney complications Diabetes mellitus complication detail: with other kidney complication Qualified Code(s): E11.29 - Type 2 diabetes mellitus with other diabetic kidney complication Subjective Principal diagnosis: Chest pain Interval history: The patient was seen and examined this morning, and his was at bedside. He was sitting in a bedside chair, and reported feeling relatively well without nausea or vomiting, though he did have some light watery stools last night. He affirmed having a better appetite and more energy today. Objective - Vital Signs Vital signs: Vital Signs Temp Pulse Resp BP Pulse Ox 03/07/19 10:08 18 145/77 89 03/07/19 07:07 98.4 F 80 22 145/77 90 03/07/19 03:46 21 92 03/07/19 02:40 97.9 F 68 16 131/61 03/06/19 23:56 98.2 F 81 16 141/76 03/06/19 22:11 20 98 03/06/19 20:05 97.9 F 82 18 141/76 91 03/06/19 16:05 98.0 F 86 18 152/70 93 03/06/19 15:50 18 93 03/06/19 11:08 97.9 F 75 18 138/65 88 Intake and Output 03/06/19 03/07/19 03/07/19 23:59 07:59 15:59 Intake Total 340 / 2860 1000 / 1360 360 / 1360 Output Total 1000 / 2650 2000 Balance -660 / 210 -1001 / -641 360 / -641 Intake: IV Fluids 100 / 1150 1000 / 1000 0.9 % Sodium Chloride 1,000 ML 1000 / 1000 @ 100 mls/hr IVC .Q10H YUN Rx#: [id number] Unasyn 1,500 mg In 0.9 % Sodium 100 / 200 Chloride (Mini-Bag +) 100 ML @ 200 mls/hr IVPB Q12H YUN Rx#: [id number] Oral 240 / 1710 360 / 360 Output: Urine 1000 / 2650 1999 / 1999 Stool Other: Meal Dinner Breakfast Percent of Meal Consumed 100% 100% Stool Size Large Stool Consistency loose liquid Stool Color Brown Weight 99.8 kg Blood Glucose* 362 232 Patient Weight 03/07/19 23:59 Weight 99.8 kg - General Appearance Exam: General appearance: well-developed, well-nourished, appears started age, obese EENT: ATNC, PERRL, mucous membranes moist Neck: no JVD, supple Respiratory: clear Cardiology: no edema, regular rate, regular rhythm, normal S1, normal S2 Gastrointestinal: normoactive bowel sounds, no guarding, obese Integumentary: warm and dry, ecchymotic Neurologic: no focal deficit, no asterixis, alert and oriented x3 Musculoskeletal: no deformities, no erythema, no cyanosis Psychiatric: mood/affect appropriate, cooperative - Lab 03/06/19 04:30 03/07/19 10:56 Consult Discharge Plan - Plan Referrals: Lincoln Hinojosa Jr, MD [Primary Care Provider] -
[2019-03-07] MEDS: Azithromycin 500 MG in D5% in Water 250 ML IVPB SCH (11:07)
[2019-03-07 11:39] LABS: BUN/Creatinine Ratio 23 (6-26); Blood Urea Nitrogen 28 mg/dL (8-23); Calcium 9.1 mg/dL (8.6-10.3); Carbon Dioxide 26 mEq/L (23-29); Chloride 100 mEq/L (98-107); Glucose 290 mg/dL (70-105); Osmolality,Calculated 298 (280-300); Potassium 4.3 mEq/L (3.5-5.1); Sodium 136 mEq/L (136-145); Uric Acid 7.7 mg/dL (2.3-7.6); eGFR For Non-African Americans 57 (> 60)
[2019-03-07] MEDS: Amoxicillin/Clavulanate 500 MG TABLET PO SCH (16:42)
[2019-03-07] MEDS ORDERED: Insulin DETEMIR 100 UNIT/ML X5UNITS SQ SCH (21:00)
[2019-03-08] MEDS: Ipratropium/Albuterol Neb 3 ML IH SCH ×2 (04:06→09:57)
[2019-03-08 05:18] LABS: Hematocrit 38.2 % (37.5-50.1); Hemoglobin 12.9 g/dL (12.9-16.9); Mean Corpuscular HGB Conc 33.8 g/dL (31.6-35.5); Mean Corpuscular Hemoglobin 31.9 pg (28.0-33.3); Mean Corpuscular Volume 94.6 fL (83.0-100.0); Platelet Count 159 K/mcL (140-400); Red Blood Count 4.04 M/mcL (4.19-5.50); Red Cell Distribution Width 13.3 % (11.5-14.5)
[2019-03-08 05:37] LABS: BUN/Creatinine Ratio 21 (6-26); Blood Urea Nitrogen 21 mg/dL (8-23); Calcium 9.3 mg/dL (8.6-10.3); Carbon Dioxide 29 mEq/L (23-29); Chloride 100 mEq/L (98-107); Glucose 183 mg/dL (70-105); Osmolality,Calculated 290 (280-300); Potassium 3.9 mEq/L (3.5-5.1); Sodium 136 mEq/L (136-145); eGFR For Non-African Americans > 60 (> 60)
[2019-03-08] MEDS: *HR* Heparin 5,000 UNIT/ML VIAL SQ SCH (05:45)
[2019-03-08] MEDS: Ondansetron ODT 4 MG TAB.RAPDIS SL SCH (06:41)
[2019-03-08 07:34] VITALS: BP 155/84
--- NOTE | 2019-03-08 08:10 | Internal Med Progress Note ---
Hospitalist Progress Note - Encounter Date of Encounter: 03/08/19 Time of Encounter: 08:10 - Exam Vitals: Temp Pulse Resp BP Pulse Ox 98.2 F 80 18 155/84 92 03/08/19 07:33 03/08/19 07:33 03/08/19 07:33 03/08/19 07:33 03/08/19 07:33 Internal Medicine: Result - Labs CBC & Chem 7: 03/08/19 05:00 03/08/19 05:00 Labs: Short CBC 03/08/19 Range/Units 05:00 WBC 7.9 (4.3-11.1) K/mcL Hgb 12.9 (12.9-16.9) g/dL Hct 38.2 (37.5-50.1) % Plt Count 159 (140-400) K/mcL BMP 03/07/19 03/08/19 10:56 05:00 Sodium 136 136 Potassium 4.3 3.9 Chloride 100 100 Carbon Dioxide 26 29 BUN 28 H 21 Creatinine 1.24 1.00 Glucose 290 H 183 H Calcium 9.1 9.3 - ABG Interpretation ABG results: PT/INR, D-dimer 1526 ng/mLFEU (0-500) H 03/05/19 09:10 Consult Discharge Plan - Plan Referrals: Lincoln Hinojosa Jr, MD [Primary Care Provider] -
[2019-03-08] MEDS: amLODIPine 5 MG TABLET PO SCH (08:12)
[2019-03-08] MEDS: predniSONE 20 MG TABLET PO SCH (08:12)
[2019-03-08] MEDS: Amoxicillin/Clavulanate 500 MG TABLET PO SCH (08:13)
[2019-03-08] MEDS: Insulin LISPRO 300 UNITS/3 ML VIAL SQ SCH (08:14)
--- NOTE | 2019-03-08 10:38 | Discharge Summary ---
- NOTES TO OUTPATIENT PROVIDER Notes to Outpatient Provider: P/w vertigo causing N/V which led to aspiration pneumonia and dehydration/MARIANO, also bradycardia. Home O2 increased to 4L. Stopping metoprolol, ACEi, HCTZ. Date of Encounter: 03/08/19 Time of Encounter: 10:33 Hospital course: Dear Doctors, I recently had the opportunity to care for this patient during their recent hospital stay at [facility]. Jake Church is a 79 M w hx CAD s/p 5 stents, R parietal CVA w residual LUE/LLE weakness, HTN, HLD, DM2, COPD on 2L, BPH, on home hospice, who presented at time of admission with dizziness, N/V, and dyspnea, found to be hypoxic, bradycardic, CXR w bibasilar consolidations, and Cr 4, concerning for vomiting causing aspiration pneumonia leading to COPD exacerbation, acute on chronic hypoxic respiratory failure, and bradycardia, as well as dehydration causing MARIANO. In the hospital, pt treated with Augmentin, oxygen, steroids, nebs, and IV fluids. Nephrotoxic agents and beta prasanna held. Patient improved steadily, and at time of discharge had HR 70s, Cr 1, and able to maintain O2 sats while ambulating with 4L over home 2L. Dx: vertigo, nausea/vomiting, aspiration pneumonia, COPD exacerbation, acute on chronic hypoxemic respiratory failure, dehydration, MARIANO, bradycardia Pertinent tests/consults: Follow up: PCP 1 week Tests pending: none Med changes: - increase home O2 to 4L - new augmentin 875 bid, last dose 03/12 - new prednisone 40 daily, last dose 03/13 - stop HCTZ, benazepril - stop metoprolol - stop ativan *(this was stopped prior to SW discovering pt is on home hospice for unclear reason, and thus ativan can actually be continued) Mental status: awake, fully oriented Code status: Administrative Director spent on discharge: 35 minutes It has been my pleasure participating in this patient's care. Please contact me with any questions or concerns regarding their hospital stay. Sincerely, Christiano Mccall MD - Discharge Medications Prescriptions: New Amoxicillin/Clavulanate [Augmentin] 875 mg PO BIDWM #9 tablet predniSONE [PredniSONE] 40 mg PO DAILY #10 tablet Oxygen 4 each .ROUTE AD #4 each Continued metFORMIN [Glucophage] 1,000 mg PO BIDWM Clopidogrel [Plavix] 75 mg PO DAILY Pravastatin Sodium 40 mg PO DAILY Hydralazine HCl 100 mg PO BID glipiZIDE [Glipizide] 10 mg PO BID Dm/Acetaminophen/Doxylamine [Vicks Nyquil Cold-Flu Liquid] 10 ml PO HS PRN PRN Reason: Cold Symptoms Insulin Aspart Prot/Insuln Asp [Novolog Mix 70-30 Vial] 0 unit SQ DAILY PRN PRN Reason: Blood Sugar - High Tamsulosin HCl [Flomax] 0.4 mg PO DAILY Ipratropium/Albuterol Sulfate [Iprat-Albut 0.5-3(2.5) mg/3 ml] 3 ml IH Q4H PRN PRN Reason: Dyspnea Hyoscyamine SL [Levsin Sl] 0.125 mg SL Q2H PRN PRN Reason: Nausea Ondansetron ODT [Zofran ODT] 4 mg SL Q6HR Nitroglycerin [Nitrostat] 0.4 mg SL Q5MIN PRN MDD 3 DOSES PRN Reason: Chest Pain Acetaminophen [Extra Strength Non-Aspirin] 500 mg PO Q6H PRN PRN Reason: Pain Meclizine HCl [Verticalm] 25 mg PO QID PRN PRN Reason: Dizziness Amlodipine Besylate 10 mg PO DAILY Discontinued hydroCHLOROthiazide [Hydrochlorothiazide] 25 mg PO DAILY Metoprolol Tartrate [Lopressor] 50 mg PO BID Benazepril HCl [Lotensin] 40 mg PO DAILY LORazepam [Ativan] 0.5 mg PO Q4HR PRN PRN Reason: Anxiety Home Medications: Clopidogrel [Plavix] 75 mg PO DAILY 03/20/16 [History] Dm/Acetaminophen/Doxylamine [Vicks Nyquil Cold-Flu Liquid] 10 ml PO HS PRN 03/20/16 [History] Hydralazine HCl 100 mg PO BID 03/20/16 [History] Insulin Aspart Prot/Insuln Asp [Novolog Mix 70-30 Vial] 0 unit SQ DAILY PRN 03/20/16 [History] Pravastatin Sodium 40 mg PO DAILY 03/20/16 [History] glipiZIDE [Glipizide] 10 mg PO BID 03/20/16 [History] metFORMIN [Glucophage] 1,000 mg PO BIDWM 03/20/16 [History] Acetaminophen [Extra Strength Non-Aspirin] 500 mg PO Q6H PRN 03/05/19 [History] Amlodipine Besylate 10 mg PO DAILY 03/05/19 [History] Hyoscyamine SL [Levsin Sl] 0.125 mg SL Q2H PRN 03/05/19 [History] Ipratropium/Albuterol Sulfate [Iprat-Albut 0.5-3(2.5) mg/3 ml] 3 ml IH Q4H PRN 03/05/19 [History] Meclizine HCl [Verticalm] 25 mg PO QID PRN 03/05/19 [History] Nitroglycerin [Nitrostat] 0.4 mg SL Q5MIN PRN MDD 3 DOSES 03/05/19 [History] Ondansetron ODT [Zofran ODT] 4 mg SL Q6HR 03/05/19 [History] Tamsulosin HCl [Flomax] 0.4 mg PO DAILY 03/05/19 [History] Amoxicillin/Clavulanate [Augmentin] 875 mg PO BIDWM #9 tablet 03/08/19 [Rx] Oxygen 4 each .ROUTE AD #4 each 03/08/19 [Rx] predniSONE [PredniSONE] 40 mg PO DAILY #10 tablet 03/08/19 [Rx] Allergies/Adverse Reactions: Allergy/AdvReac Type Severity Reaction Status Date / Time No Known Allergies Allergy Verified 03/05/19 14:38 Date of admission: 03/05/19 13:58 Primary care physician: Lincoln Hinojosa Jr, MD Consults: 03/05/19 10:36 Consult to Cardiology [CONS] Stat Comment: Consulting Provider: Cardiology Harriett Reason for Consult: bradycardia Time Notified: 10:10 Call Completed: Yes 03/05/19 11:11 Consult to Nephrology [CONS] Stat Consulting Provider: Kidney Harriett/EDWARD/SHERI/CHARBEL Reason for Consult: ARF Time Notified: 11:06 Call Completed: Yes - Constitutional Vitals: Temp Pulse Resp BP Pulse Ox 98.2 F 80 16 155/84 93 03/08/19 07:33 03/08/19 07:33 03/08/19 09:57 03/08/19 07:33 03/08/19 09:57 Exam: GEN: No acute distress, A&O3 HEAD: Atraumatic, normocephalic EENT: Pupils symmetric, sclera white, conjunctiva pink, moist mucous membranes HEART: RRR, normal heart sounds, S1 and S2, no murmurs LUNGS: Diminished bilaterally, improved aeration, mild wheezing ABD: Soft, nontender EXT: Trace pretibial edema noted, symmetric, pulses 2+ NEURO: Residual LUE and LLE weakness, cooperative with exam, able to ambulate - Patient Status Disposition: Home Health Service Condition: Fair Functional capacity at discharge: uses cane/walker Overall status at discharge: patient is progressing back to baseline - Discharge Instructions Instructions: Acute Kidney Injury (DC), Pneumonia (DC) Follow Up With: Misael Guerra CNP [Advanced Practice Nurse] - (office will call patient at home with follow up appointment) Lincoln Hinojosa Jr, MD [Primary Care Provider] - 03/15/19 12:00 pm Additional Instructions: increase home O2 to 4L - Diet and Activity Activity: increase activity as tolerated, wear oxygen at all times Diet: diabetic diet
--- NOTE | 2019-03-08 10:43 | Physician Discharge Referral ---
Home Health/Hosp Referral Info Transfer to: Home Health Provider in Charge Post Discharge: PCP - Diagnosis (1) Chronic hypoxemic respiratory failure Priority: Primary Status: Acute - Respiratory Orders Oxygen / L per min (4L) Smoking Cessation: Smoking cessation has been advised. For more information, call the [place] Tobacco Quit Line at 7-138-RCLV-NOW. Other Treatments: resume all other previous orders - Transfer Medications Prescriptions: Amoxicillin/Clavulanate [Augmentin] 875 mg PO BIDWM #9 tablet Oxygen 4 each .ROUTE AD #4 each predniSONE [PredniSONE] 40 mg PO DAILY #10 tablet Home Medications: Clopidogrel [Plavix] 75 mg PO DAILY 03/20/16 [History] Dm/Acetaminophen/Doxylamine [Vicks Nyquil Cold-Flu Liquid] 10 ml PO HS PRN 03/20/16 [History] Hydralazine HCl 100 mg PO BID 03/20/16 [History] Insulin Aspart Prot/Insuln Asp [Novolog Mix 70-30 Vial] 0 unit SQ DAILY PRN 03/20/16 [History] Pravastatin Sodium 40 mg PO DAILY 03/20/16 [History] glipiZIDE [Glipizide] 10 mg PO BID 03/20/16 [History] metFORMIN [Glucophage] 1,000 mg PO BIDWM 03/20/16 [History] Acetaminophen [Extra Strength Non-Aspirin] 500 mg PO Q6H PRN 03/05/19 [History] Amlodipine Besylate 10 mg PO DAILY 03/05/19 [History] Hyoscyamine SL [Levsin Sl] 0.125 mg SL Q2H PRN 03/05/19 [History] Ipratropium/Albuterol Sulfate [Iprat-Albut 0.5-3(2.5) mg/3 ml] 3 ml IH Q4H PRN 03/05/19 [History] Meclizine HCl [Verticalm] 25 mg PO QID PRN 03/05/19 [History] Nitroglycerin [Nitrostat] 0.4 mg SL Q5MIN PRN MDD 3 DOSES 03/05/19 [History] Ondansetron ODT [Zofran ODT] 4 mg SL Q6HR 03/05/19 [History] Tamsulosin HCl [Flomax] 0.4 mg PO DAILY 03/05/19 [History] Amoxicillin/Clavulanate [Augmentin] 875 mg PO BIDWM #9 tablet 03/08/19 [Rx] Oxygen 4 each .ROUTE AD #4 each 03/08/19 [Rx] predniSONE [PredniSONE] 40 mg PO DAILY #10 tablet 03/08/19 [Rx] Allergies/Adverse Reactions: Allergy/AdvReac Type Severity Reaction Status Date / Time No Known Allergies Allergy Verified 03/05/19 14:38 Certification: Further, I certify that my clinical findings support that this patient is homebound (i.e. absences from home require considerable and taxing effort and are for medical reasons or oriental orthodox services or infrequently or short duration when for other reasons) because: Homebound Reason: Leaving home requires considerable and taxing effort due to condition, Severity of cardiac or pulmonary status limits activity tolerance Attestation: My signature below is to certify that this patient is under my care and that I, or nurse practitioner, or a physician's assistant customer service manager working with me, has a [id number] encounter with this patient.
--- NOTE | 2019-03-08 12:55 | Electrocardiograph Report ---
[place] [id number] Test Date: 2019-03-05 Pat Name: Jake Church Department: 110 Room: 2N14 Gender: M Clip Riveter: : [id number] Requested By: Apolinar Liriano Order Number: [id number] Reading MD: Thomas Villatoro Measurements Intervals [place] Rate: 34 P: HI: 0 QRS: 38 QRSD: 140 T: 17 QT: 573 QTc: 468 Interpretive Statements junctional rhythm RIGHT BUNDLE BRANCH BLOCK [120+ ms QRS DURATION, UPRIGHT V1, 40+ ms S IN I/aVL/V4/V5/V6] Electronically Signed On 03-08-2019 12:53:09 EDT by Thomas Villatoro
== END 2019-03-08 11:55 | disposition home health service (06) | DRG 871 ==
LOC: EMEROOARM 08:55 → SUATTDRO 13:58 → 2SOUTHHOLD 13:58 → 2NNU 16:57
PROVIDERS: ADMIT Internal Medicine; ATTEND Internal Medicine

== ENCOUNTER 2022-04-28 23:01 | Inpatient (IN) ==
[2022-04-28] MEDS ORDERED: cefTRIAXone 1,000 MG in 0.9 % Sodium Chloride 10 ML IVP ONE (23:11)
[2022-04-28 23:23] LABS: ABG Base Excess 3 mEq/L (-2 to 3); ABG HCO3 27 mEq/L (21-27); ABG Oxygen Saturation 93 % (95-98); ABG PCO2 41 mmHg (35-45); ABG PH 7.43 pH Units (7.32-7.45); ABG PO2 66 mmHg (85-104); ABG TCO2 29 mEq/L (20-26)
[2022-04-28 23:28] LABS: Basophils # 0.1 K/mcL (0.0-0.2); Basophils % 0.4 %; Eosinophils # 0.1 K/mcL (0.0-0.6); Eosinophils % 0.4 %; Immature Granulocytes % 0.8 % (0-4); Lymphocytes # 0.3 K/mcL (0.6-4.6); Lymphocytes % 1.8 %; Mean Corpuscular HGB Conc 34.1 g/dL (31.6-35.5); Mean Corpuscular Hemoglobin 31.3 pg (28.0-33.3); Mean Corpuscular Volume 91.7 fL (83.0-100.0); Mean Platelet Volume 12.2 fL (9.4-12.4); Monocytes # 0.6 K/mcL (0.0-1.3); Neutrophils # 14.7 K/mcL (1.6-8.9); Platelet Count 194 K/mcL (140-400); Red Blood Count 4.47 M/mcL (4.19-5.50); Red Cell Distribution Width 13.9 % (11.5-14.5); Segmented Neutrophils % 92.6 %; White Blood Count 15.8 K/mcL (4.3-11.1)
[2022-04-28 23:35] LABS: INR 1.4; Prothrombin Time 15.9 Seconds (9.4-12.1)
[2022-04-28 23:37] LABS: Activated Partial Thrombo Time 28.9 Seconds (26.0-36.0)
[2022-04-28 23:48] LABS: Alanine Aminotransferase 11 Units/L (7-52); Albumin 3.7 g/dL (3.5-5.7); Albumin/Globulin Ratio 1.2 (1.1-2.2); Alkaline Phosphatase 53 Units/L (34-104); Aspartate Amino Transferase 12 Units/L (13-39); BUN/Creatinine Ratio 21 (6-26); Bilirubin,Direct 0.2 mg/dL (0.0-0.2); Bilirubin,Indirect 0.4 mg/dL (0.0-1.0); Bilirubin,Total 0.6 mg/dL (0.3-1.0); Blood Urea Nitrogen 26 mg/dL (8-23); Calcium 9.7 mg/dL (8.6-10.3); Carbon Dioxide 29 mEq/L (23-29); Chloride 92 mEq/L (98-107); Globulin 3.1 g/dL (2.4-3.5); Glucose 392 mg/dL (70-105); Magnesium 1.5 mg/dL (1.6-2.6); Osmolality,Calculated 293 (280-300); Potassium 3.7 mEq/L (3.5-5.1); Sodium 131 mEq/L (136-145); Total Protein 6.8 g/dL (6.4-8.9); eGFR For African Americans > 60 (> 60); eGFR For Non-African Americans 56 (> 60)
[2022-04-28 23:56] LABS: Troponin I 0.06 ng/mL (< 0.04)
[2022-04-28] MEDS ORDERED: *HR* LORazepam 2 MG/ML VIAL IVP ONE (23:59)
[2022-04-29] MEDS ORDERED: Azithromycin 500 MG in 0.9 % Sodium Chloride 250 ML IVPB ONE (00:12)
[2022-04-29] MEDS ORDERED: Naloxone 0.4 MG/ML INJ IVP PRN (01:34)
[2022-04-29 05:07] LABS: Hemoglobin 14.1 g/dL (12.9-16.9)
[2022-04-29 05:08] LABS: Basophils % 0.3 %; Eosinophils % 0.3 %; Hematocrit 41.4 % (37.5-50.1); Immature Granulocytes % 0.8 % (0-4); Immature Platelets 14.4 % (1.1-6.1); Lymphocytes # 0.3 K/mcL (0.6-4.6); Lymphocytes % 2.2 %; Mean Corpuscular HGB Conc 34.1 g/dL (31.6-35.5); Mean Corpuscular Hemoglobin 31.3 pg (28.0-33.3); Mean Platelet Volume 12.1 fL (9.4-12.4); Monocytes # 0.6 K/mcL (0.0-1.3); Monocytes % 4.3 %; Platelet Count 162 K/mcL (140-400); Red Cell Distribution Width 13.8 % (11.5-14.5); Segmented Neutrophils % 92.1 %; White Blood Count 14.8 K/mcL (4.3-11.1)
[2022-04-29 05:09] LABS: Neutrophils # 13.6 K/mcL (1.6-8.9)
[2022-04-29] MEDS ORDERED: *HR* Dextrose 50 % in Water (Syg) 50 ML SYRINGE IVP PRN (05:23)
[2022-04-29] MEDS ORDERED: Dextrose Gel 15 GM/37.5 ML TUBE PO PRN ×2 (05:23)
[2022-04-29 05:28] LABS: Alanine Aminotransferase 10 Units/L (7-52); Albumin 3.5 g/dL (3.5-5.7); Albumin/Globulin Ratio 1.2 (1.1-2.2); Alkaline Phosphatase 47 Units/L (34-104); Aspartate Amino Transferase 13 Units/L (13-39); BUN/Creatinine Ratio 23 (6-26); Bilirubin,Total 0.6 mg/dL (0.3-1.0); Blood Urea Nitrogen 27 mg/dL (8-23); C-Reactive Protein 292 mg/L (Less than 10); Calcium 9.2 mg/dL (8.6-10.3); Carbon Dioxide 29 mEq/L (23-29); Chloride 93 mEq/L (98-107); Globulin 2.9 g/dL (2.4-3.5); Glucose 381 mg/dL (70-105); Lactate Dehydrogenase 253 Units/L (140-271); Magnesium 1.5 mg/dL (1.6-2.6); Osmolality,Calculated 293 (280-300); Phosphorous 4.1 mg/dL (2.7-4.5); Potassium 4.2 mEq/L (3.5-5.1); Sodium 131 mEq/L (136-145); Total Protein 6.4 g/dL (6.4-8.9); eGFR For African Americans > 60 (> 60); eGFR For Non-African Americans 59 (> 60)
[2022-04-29 05:45] LABS: Ferritin 261 ng/mL (20-250)
[2022-04-29] MEDS ORDERED: Insulin LISPRO 300 UNITS/3 ML VIAL SUBQ SCH (06:00)
[2022-04-29] MEDS: *HR* Heparin 5,000 UNIT/ML VIAL SQ SCH ×3 (06:15→23:42)
[2022-04-29] MEDS ORDERED: Ipratropium/Albuterol Neb 3 ML IH SCH (08:00)
[2022-04-29] MEDS ORDERED: Insulin Human Regular 10 UNIT in 0.9 % Sodium Chloride 10 ML IV ONE (08:01)
[2022-04-29] MEDS ORDERED: Insulin DETEMIR 100 UNIT/ML X5UNITS SUBQ ONE (08:02)
[2022-04-29] MEDS: amLODIPine 5 MG TABLET PO SCH (09:57)
[2022-04-29] MEDS: Piperacillin/Tazobactam 3.375 GM in 0.9 % Sodium Chloride Mini Bag 100 ML IVPB SCH ×2 (10:49→23:41)
[2022-04-29 11:25] LABS: Estimated Average Glucose 235 mg/dl; Hemoglobin A1C 9.8 %
[2022-04-29] MEDS: Ipratropium 1 PUFF INHALER IH SCH ×4 (11:30→23:46)
[2022-04-29] MEDS ORDERED: Morphine Sulfate Oral CONC 10 MG/0.5 ML ORAL.SYG PO PRN (14:16)
[2022-04-29] MEDS ORDERED: haloperidoL 1 MG TABLET PO PRN (14:16)
[2022-04-29] MEDS ORDERED: *HR* LORazepam 0.5 MG TABLET PO PRN (14:16)
[2022-04-29] MEDS ORDERED: Hyoscyamine SL 0.125 MG TAB.SUBL SL PRN (14:16)
[2022-04-29] MEDS: Insulin DETEMIR 100 UNIT/ML X5UNITS SUBQ SCH (23:42)
[2022-04-29] MEDS ORDERED: Acetaminophen 650 MG RECTAL SUPP RC PRN (23:56)
[2022-04-30] MEDS: Insulin LISPRO 300 UNITS/3 ML VIAL SUBQ SCH ×7 (00:24→16:44)
[2022-04-30] MEDS ORDERED: *HR* Metoprolol 5 MG/5 ML VIAL IVP ONE ×2 (01:00→01:15)
[2022-04-30 01:57] LABS: Basophils % 0.3 %; Hematocrit 42.9 % (37.5-50.1); Hemoglobin 14.3 g/dL (12.9-16.9); Immature Granulocytes % 0.8 % (0-4); Lymphocytes # 0.4 K/mcL (0.6-4.6); Lymphocytes % 2.6 %; Mean Corpuscular HGB Conc 33.3 g/dL (31.6-35.5); Mean Corpuscular Hemoglobin 31.4 pg (28.0-33.3); Mean Corpuscular Volume 94.1 fL (83.0-100.0); Mean Platelet Volume 12.6 fL (9.4-12.4); Monocytes # 0.6 K/mcL (0.0-1.3); Monocytes % 3.7 %; Neutrophils # 14.7 K/mcL (1.6-8.9); Platelet Count 149 K/mcL (140-400); Red Blood Count 4.56 M/mcL (4.19-5.50); Red Cell Distribution Width 14.1 % (11.5-14.5); Segmented Neutrophils % 92.6 %; White Blood Count 15.9 K/mcL (4.3-11.1)
[2022-04-30 02:13] LABS: Blood Urea Nitrogen 38 mg/dL (8-23); Carbon Dioxide 24 mEq/L (23-29); Chloride 98 mEq/L (98-107); Glucose 290 mg/dL (70-105); Osmolality,Calculated 304 (280-300); Potassium 3.7 mEq/L (3.5-5.1); Sodium 137 mEq/L (136-145)
[2022-04-30 03:23] LABS: BUN/Creatinine Ratio 32 (6-26); eGFR For African Americans > 60 (> 60); eGFR For Non-African Americans 60 (> 60)
[2022-04-30] MEDS: Piperacillin/Tazobactam 3.375 GM in 0.9 % Sodium Chloride Mini Bag 100 ML IVPB SCH ×3 (03:28→16:41)
[2022-04-30] MEDS: Ipratropium 1 PUFF INHALER IH SCH ×6 (03:29→23:05)
[2022-04-30] MEDS: *HR* Heparin 5,000 UNIT/ML VIAL SQ SCH ×3 (06:44→21:02)
[2022-04-30] MEDS: Dexamethasone Sodium Phos/PF 10 MG/ML VIAL IVP SCH (09:02)
[2022-04-30] MEDS: Azithromycin 250 MG TABLET PO SCH (09:05)
[2022-04-30] MEDS: Insulin DETEMIR 100 UNIT/ML X5UNITS SUBQ SCH ×2 (09:06→21:02)
[2022-04-30] MEDS: amLODIPine 5 MG TABLET PO SCH (09:06)
[2022-04-30 12:46] LABS: ABG Base Excess 3 mEq/L (-2 to 3); ABG HCO3 29 mEq/L (21-27); ABG Oxygen Saturation 91 % (95-98); ABG PCO2 44 mmHg (35-45); ABG PH 7.42 pH Units (7.32-7.45); ABG PO2 60 mmHg (85-104); ABG TCO2 30 mEq/L (20-26)
[2022-04-30] MEDS ORDERED: 0.9 % Sodium Chloride 1,000 ML IVC SCH (17:00)
[2022-04-30] MEDS: Erythromycin OPTH Oint LEFT EYE SCH ×2 (18:04→21:02)
[2022-05-01] MEDS: Piperacillin/Tazobactam 3.375 GM in 0.9 % Sodium Chloride Mini Bag 100 ML IVPB SCH ×4 (00:32→23:54)
[2022-05-01] MEDS: Insulin LISPRO 300 UNITS/3 ML VIAL SUBQ SCH ×5 (01:54→23:55)
[2022-05-01 01:58] LABS: Hematocrit 38.9 % (37.5-50.1); Mean Corpuscular HGB Conc 33.4 g/dL (31.6-35.5); Mean Corpuscular Hemoglobin 31.2 pg (28.0-33.3); Mean Corpuscular Volume 93.3 fL (83.0-100.0); Mean Platelet Volume 12.8 fL (9.4-12.4); Platelet Count 128 K/mcL (140-400); Red Blood Count 4.17 M/mcL (4.19-5.50); Red Cell Distribution Width 14.1 % (11.5-14.5); White Blood Count 10.5 K/mcL (4.3-11.1)
[2022-05-01 02:21] LABS: Calcium 8.8 mg/dL (8.6-10.3); Potassium 3.7 mEq/L (3.5-5.1)
[2022-05-01] MEDS: Ipratropium 1 PUFF INHALER IH SCH ×6 (04:29→23:16)
[2022-05-01] MEDS: *HR* Heparin 5,000 UNIT/ML VIAL SQ SCH ×3 (05:35→20:14)
[2022-05-01] MEDS: Dexamethasone Sodium Phos/PF 10 MG/ML VIAL IVP SCH (07:47)
[2022-05-01] MEDS: Azithromycin 250 MG TABLET PO SCH (07:48)
[2022-05-01] MEDS: amLODIPine 5 MG TABLET PO SCH (07:48)
[2022-05-01] MEDS: Insulin DETEMIR 100 UNIT/ML X5UNITS SUBQ SCH ×2 (08:05→20:14)
[2022-05-01] MEDS: Erythromycin OPTH Oint LEFT EYE SCH ×3 (08:05→20:14)
[2022-05-01] MEDS ORDERED: Haloperidol Lactate 5 MG/ML VIAL IVP PRN (08:15)
[2022-05-01] MEDS ORDERED: *HR* Labetalol 20 MG/4 ML SYRINGE IVP PRN (08:17)
[2022-05-01 08:58] LABS: Magnesium 2.4 mg/dL (1.6-2.6); Phosphorous 5.2 mg/dL (2.7-4.5)
[2022-05-01] MEDS: Azithromycin 500 MG in 0.9 % Sodium Chloride 250 ML IVPB SCH (10:01)
[2022-05-01] MEDS ORDERED: 0.9 % Sodium Chloride 1,000 ML IVC SCH (15:30)
[2022-05-01] MEDS: Morphine Sulfate 2 MG/ML SYRINGE IVP PRN ×2 (17:15→22:04)
[2022-05-01] MEDS: *HR* LORazepam 2 MG/ML VIAL IVP PRN (22:03)
[2022-05-02 00:19] LABS: Bilirubin,Urine Negative (Negative); Blood,Urine Trace (Negative); Clarity,Urine Clear (Clear); Color,Urine Light-Yellow (Yellow); Glucose,Urine (UA) Normal (Normal); Ketones,Urine 10 mg/dL (Negative); Leukocyte Esterase,Urine Negative (Negative); Nitrite,Urine Negative (Negative); Protein,Urine Trace mg/dL (Neg-Trace); Specific Gravity,Urine 1.025 (1.010-1.025); Urobilinogen,Urine Normal (Normal)
[2022-05-02] MEDS: Ipratropium 1 PUFF INHALER IH SCH ×6 (04:21→23:37)
[2022-05-02] MEDS: D5% in Water 1,000 ML IVC PRN ×2 (05:25→16:19)
[2022-05-02] MEDS: Insulin LISPRO 300 UNITS/3 ML VIAL SUBQ SCH ×3 (05:25→18:06)
[2022-05-02] MEDS: *HR* Heparin 5,000 UNIT/ML VIAL SQ SCH ×3 (05:25→22:47)
[2022-05-02] MEDS: Insulin DETEMIR 100 UNIT/ML X5UNITS SUBQ SCH ×2 (09:22→19:49)
[2022-05-02] MEDS: Azithromycin 500 MG in 0.9 % Sodium Chloride 250 ML IVPB SCH (09:30)
[2022-05-02] MEDS: Piperacillin/Tazobactam 3.375 GM in 0.9 % Sodium Chloride Mini Bag 100 ML IVPB SCH ×2 (09:31→17:04)
[2022-05-02] MEDS: Dexamethasone Sodium Phos/PF 10 MG/ML VIAL IVP SCH (09:31)
[2022-05-02] MEDS: Erythromycin OPTH Oint LEFT EYE SCH ×3 (09:31→19:43)
[2022-05-02] MEDS: amLODIPine 5 MG TABLET PO SCH (09:31)
[2022-05-02 15:06] LABS: Alanine Aminotransferase 16 Units/L (7-52); Albumin 3.3 g/dL (3.5-5.7); Albumin/Globulin Ratio 1.2 (1.1-2.2); Alkaline Phosphatase 42 Units/L (34-104); Aspartate Amino Transferase 25 Units/L (13-39); BUN/Creatinine Ratio 61 (6-26); Bilirubin,Total 0.6 mg/dL (0.3-1.0); Blood Urea Nitrogen 79 mg/dL (8-23); Calcium 8.7 mg/dL (8.6-10.3); Carbon Dioxide 24 mEq/L (23-29); Chloride 105 mEq/L (98-107); Globulin 2.7 g/dL (2.4-3.5); Glucose 93 mg/dL (70-105); Magnesium 2.6 mg/dL (1.6-2.6); Osmolality,Calculated 317 (280-300); Phosphorous 3.5 mg/dL (2.7-4.5); Potassium 4.6 mEq/L (3.5-5.1); Sodium 142 mEq/L (136-145); Triglycerides 228 mg/dL (< 150); eGFR For African Americans > 60 (> 60); eGFR For Non-African Americans 53 (> 60)
[2022-05-02] MEDS ORDERED: Clinimix E 5%-15% SOLUTION 2,000 ML with MVI, adult with vitamin K 10 ML IVC SCH (17:00)
[2022-05-02] MEDS: *HR* LORazepam 2 MG/ML VIAL IVP PRN (19:42)
[2022-05-03] MEDS: Piperacillin/Tazobactam 3.375 GM in 0.9 % Sodium Chloride Mini Bag 100 ML IVPB SCH ×3 (00:44→16:11)
[2022-05-03] MEDS: Insulin LISPRO 300 UNITS/3 ML VIAL SUBQ SCH ×4 (00:45→18:39)
[2022-05-03] MEDS: Ipratropium 1 PUFF INHALER IH SCH ×6 (04:02→23:42)
[2022-05-03] MEDS: *HR* Heparin 5,000 UNIT/ML VIAL SQ SCH ×3 (05:30→21:24)
[2022-05-03 06:23] LABS: Alanine Aminotransferase 19 Units/L (7-52); Albumin 3.1 g/dL (3.5-5.7); Alkaline Phosphatase 45 Units/L (34-104); Aspartate Amino Transferase 25 Units/L (13-39); BUN/Creatinine Ratio 57 (6-26); Bilirubin,Total 0.9 mg/dL (0.3-1.0); Blood Urea Nitrogen 54 mg/dL (8-23); Calcium 9.1 mg/dL (8.6-10.3); Carbon Dioxide 33 mEq/L (23-29); Chloride 108 mEq/L (98-107); Glucose 74 mg/dL (70-105); Magnesium 2.3 mg/dL (1.6-2.6); Osmolality,Calculated 317 (280-300); Phosphorous 2.1 mg/dL (2.7-4.5); Potassium 3.6 mEq/L (3.5-5.1); Sodium 147 mEq/L (136-145); Total Protein 6.1 g/dL (6.4-8.9); Triglycerides 182 mg/dL (< 150); eGFR For African Americans > 60 (> 60); eGFR For Non-African Americans > 60 (> 60)
[2022-05-03] MEDS: Dexmedetomidine HCl 400 MCG/100 ML MLS IVC SCH (09:16)
[2022-05-03] MEDS: Dexamethasone Sodium Phos/PF 10 MG/ML VIAL IVP SCH (09:16)
[2022-05-03] MEDS: Erythromycin OPTH Oint LEFT EYE SCH ×3 (09:30→21:23)
[2022-05-03] MEDS: amLODIPine 5 MG TABLET PO SCH (09:36)
[2022-05-03] MEDS: Azithromycin 500 MG in 0.9 % Sodium Chloride 250 ML IVPB SCH (09:39)
[2022-05-03] MEDS: Insulin DETEMIR 100 UNIT/ML X5UNITS SUBQ SCH ×2 (09:40→21:24)
[2022-05-03] MEDS ORDERED: Potassium Phosphate 44 MEQ in 0.9 % Sodium Chloride 250 ML IVPB ONE (10:50)
[2022-05-03] MEDS ORDERED: Clinimix E 5%-15% SOLUTION 2,000 ML with MVI, adult with vitamin K 10 ML IVC SCH (17:00)
[2022-05-03] MEDS ORDERED: Iopamidol - 370 500 ML MLS IVP ONE (18:01)
[2022-05-03] MEDS ORDERED: 0.9 % Sodium Chloride 500 ML IVC ONE ×2 (18:02→20:00)
[2022-05-04] MEDS: Piperacillin/Tazobactam 3.375 GM in 0.9 % Sodium Chloride Mini Bag 100 ML IVPB SCH ×3 (01:10→15:55)
[2022-05-04] MEDS: Insulin LISPRO 300 UNITS/3 ML VIAL SUBQ SCH ×3 (01:11→11:00)
[2022-05-04] MEDS: Ipratropium 1 PUFF INHALER IH SCH ×5 (04:40→20:40)
[2022-05-04] MEDS: *HR* Heparin 5,000 UNIT/ML VIAL SQ SCH (06:03)
[2022-05-04] MEDS: Azithromycin 500 MG in 0.9 % Sodium Chloride 250 ML IVPB SCH (07:52)
[2022-05-04] MEDS: Dexamethasone Sodium Phos/PF 10 MG/ML VIAL IVP SCH (07:57)
[2022-05-04] MEDS: Dexmedetomidine HCl 400 MCG/100 ML MLS IVC SCH ×2 (08:02→15:15)
[2022-05-04] MEDS: amLODIPine 5 MG TABLET PO SCH (08:06)
[2022-05-04] MEDS: Insulin DETEMIR 100 UNIT/ML X5UNITS SUBQ SCH ×2 (08:08→21:07)
[2022-05-04] MEDS: Erythromycin OPTH Oint LEFT EYE SCH ×3 (09:24→21:05)
[2022-05-04] MEDS: *HR* Enoxaparin 80 MG/0.8 ML SYRINGE SQ SCH (15:53)
[2022-05-04 16:42] LABS: Alanine Aminotransferase 15 Units/L (7-52); Albumin 2.6 g/dL (3.5-5.7); Alkaline Phosphatase 41 Units/L (34-104); Aspartate Amino Transferase 15 Units/L (13-39); BUN/Creatinine Ratio 54 (6-26); Bilirubin,Total 0.6 mg/dL (0.3-1.0); Blood Urea Nitrogen 49 mg/dL (8-23); Calcium 8.6 mg/dL (8.6-10.3); Carbon Dioxide 32 mEq/L (23-29); Chloride 114 mEq/L (98-107); Globulin 2.6 g/dL (2.4-3.5); Glucose 185 mg/dL (70-105); Magnesium 2.3 mg/dL (1.6-2.6); Osmolality,Calculated 330 (280-300); Phosphorous 3.2 mg/dL (2.7-4.5); Potassium 3.6 mEq/L (3.5-5.1); Sodium 151 mEq/L (136-145); Total Protein 5.2 g/dL (6.4-8.9); eGFR For African Americans > 60 (> 60); eGFR For Non-African Americans > 60 (> 60)
[2022-05-04] MEDS ORDERED: D5% in Water 1,000 ML IVC SCH (16:45)
[2022-05-04] MEDS ORDERED: Clinimix E 5%-15% SOLUTION 2,000 ML with MVI, adult with vitamin K 10 ML IVC SCH (17:00)
[2022-05-04] MEDS: D10% in Water 500 ML IVC PRN (17:19)
[2022-05-04] MEDS: *HR* LORazepam 2 MG/ML VIAL IVP PRN (18:28)
[2022-05-05] MEDS: Insulin LISPRO 300 UNITS/3 ML VIAL SUBQ SCH ×5 (00:02→17:16)
[2022-05-05] MEDS: Piperacillin/Tazobactam 3.375 GM in 0.9 % Sodium Chloride Mini Bag 100 ML IVPB SCH ×3 (00:03→17:14)
[2022-05-05] MEDS: Ipratropium 1 PUFF INHALER IH SCH ×6 (00:42→20:41)
[2022-05-05] MEDS: Dexmedetomidine HCl 400 MCG/100 ML MLS IVC SCH ×2 (04:53→17:13)
[2022-05-05] MEDS: *HR* Enoxaparin 80 MG/0.8 ML SYRINGE SQ SCH ×2 (04:53→17:14)
[2022-05-05] MEDS: D10% in Water 500 ML IVC PRN (04:55)
[2022-05-05] MEDS: amLODIPine 5 MG TABLET PO SCH (07:45)
[2022-05-05] MEDS: Dexamethasone Sodium Phos/PF 10 MG/ML VIAL IVP SCH (09:30)
[2022-05-05] MEDS: Azithromycin 500 MG in 0.9 % Sodium Chloride 250 ML IVPB SCH (09:31)
[2022-05-05] MEDS: Insulin DETEMIR 100 UNIT/ML X5UNITS SUBQ SCH ×2 (09:33→20:38)
[2022-05-05 09:43] LABS: Hemoglobin 13.2 g/dL (12.9-16.9)
[2022-05-05 09:45] LABS: Mean Corpuscular HGB Conc 32.2 g/dL (31.6-35.5); Mean Corpuscular Hemoglobin 30.8 pg (28.0-33.3); Mean Corpuscular Volume 95.6 fL (83.0-100.0); Mean Platelet Volume 13.3 fL (9.4-12.4); Red Blood Count 4.29 M/mcL (4.19-5.50); Red Cell Distribution Width 15.2 % (11.5-14.5); White Blood Count 12.4 K/mcL (4.3-11.1)
[2022-05-05 10:04] LABS: Alanine Aminotransferase 13 Units/L (7-52); Albumin 2.6 g/dL (3.5-5.7); Alkaline Phosphatase 44 Units/L (34-104); Aspartate Amino Transferase 16 Units/L (13-39); BUN/Creatinine Ratio 42 (6-26); Bilirubin,Total 0.6 mg/dL (0.3-1.0); Blood Urea Nitrogen 42 mg/dL (8-23); Calcium 8.2 mg/dL (8.6-10.3); Carbon Dioxide 30 mEq/L (23-29); Chloride 114 mEq/L (98-107); Globulin 2.6 g/dL (2.4-3.5); Glucose 223 mg/dL (70-105); Magnesium 2.1 mg/dL (1.6-2.6); Osmolality,Calculated 325 (280-300); Phosphorous 3.1 mg/dL (2.7-4.5); Sodium 149 mEq/L (136-145); Total Protein 5.2 g/dL (6.4-8.9); eGFR For African Americans > 60 (> 60); eGFR For Non-African Americans > 60 (> 60)
[2022-05-05] MEDS ORDERED: D5% in Water 1,000 ML IVC SCH (10:15)
[2022-05-05] MEDS: Erythromycin OPTH Oint LEFT EYE SCH ×3 (12:24→20:36)
[2022-05-05] MEDS ORDERED: Clinimix E 5%-15% SOLUTION 2,000 ML with MVI, adult with vitamin K 10 ML IVC SCH (17:00)
[2022-05-05] MEDS ORDERED: Clinimix E 5%-20% SOLUTION 2,000 ML with MVI, adult with vitamin K 10 ML IVC SCH (17:00)
[2022-05-06] MEDS: Ipratropium 1 PUFF INHALER IH SCH ×4 (00:08→11:02)
[2022-05-06] MEDS: *HR* LORazepam 2 MG/ML VIAL IVP PRN (01:45)
[2022-05-06] MEDS: Morphine Sulfate 2 MG/ML SYRINGE IVP PRN (02:10)
[2022-05-06] MEDS: Insulin LISPRO 300 UNITS/3 ML VIAL SUBQ SCH ×2 (05:59→06:00)
[2022-05-06] MEDS: *HR* Enoxaparin 80 MG/0.8 ML SYRINGE SQ SCH (06:01)
[2022-05-06] MEDS: amLODIPine 5 MG TABLET PO SCH (07:46)
[2022-05-06] MEDS: Erythromycin OPTH Oint LEFT EYE SCH (08:12)
[2022-05-06] MEDS: Dexamethasone Sodium Phos/PF 10 MG/ML VIAL IVP SCH (08:12)
[2022-05-06] MEDS: Insulin DETEMIR 100 UNIT/ML X5UNITS SUBQ SCH (08:13)
[2022-05-06 10:02] VITALS: PULSE 103; TEMP 99.7
[2022-05-06] MEDS ORDERED: *HR* LORazepam 2 MG/ML VIAL IVP PRN (11:59)
[2022-05-06] MEDS ORDERED: Morphine Sulfate 2 MG/ML SYRINGE IVP PRN (12:00)
[2022-05-06] MEDS ORDERED: Haloperidol Lactate 5 MG/ML VIAL IVP PRN (12:01)
[2022-05-06] MEDS: Dexmedetomidine HCl 400 MCG/100 ML MLS IVC SCH (14:07)
[2022-05-06] MEDS ORDERED: Ipratropium 1 PUFF INHALER IH PRN (14:55)
[2022-05-06 15:55] VITALS: BP 125/60; O2SAT 81
== END 2022-05-06 14:20 | disposition expired | DRG 871 ==
LOC: EMEROOARM 23:01 → 3NENU 04-29 15:40 → SUATTDRO 04-29 15:40 → 3NENU 04-29 20:13
PROVIDERS: ADMIT Internal Medicine; ATTEND Internal Medicine